=== PATIENT | female | born 1990 | race Caucasian/White ===

== ENCOUNTER 2018-01-26 13:33 | Emergency (ER) | payer MEDICAID ==
[~2018-01-26] VITALS: Ht 261.6 cm; Wt 70.3 kg
[~2018-01-26 13:33] MED LIST: ACET-2222 PO; ACHD5005 PO; ALLERGY MED; ALPR.25T PO; AMOX500C2 PO; AZIT-21 PO; BC PILL; BPR150TCR; CEPH-38 PO; DCS100C; DESV50TA; DOXY100C2 PO; ESCT10T; FLUO20CA25 PO; GEODON; GUAN3TAB; HYDR-1231 PO; HYDR1TAB PO; Hydrocodone Bit/Acetaminophen PO; IBP600T1 PO; Ibuprofen PO; METH4TAB PO; MGX400T PO; MNTL10T; NAPR-243 PO; NEOM10DR20 LEFT EAR; NIFE-12 PO; NIFE10CA21 PO; OMEP20CA6; PEG250PW; PNV1CAPS13 PO; PRD20T PO; PREN1TAB39 PO; PROP1TAB77 PO; RAME8T; SCR1T1; SULF1TAB38 PO; TRAZADONE; YAZ; ZPR80C; [UNRECOGNIZED DRUG - REMARK]
--- NOTE | 2018-01-26 13:54 | ED Chest Pain ---
General Chief Complaint: Chest Pain Stated Complaint: CP//LT EXTREMITIES NUMB Source: patient Exam Limitations: no limitations History of Present Illness Date Seen by Provider: Jan 26, 2018 Time Seen by Provider: 13:52 Initial Comments ER with reports of chest pain. The chest pain has been constant for about 24 hours. She states that she's worked about 48 hours in the past 4 days and thinks she might be overworked. 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 Abducting her left arm worsens the chest pain in the left anterior lateral chest is tender to palpation. She has had intermittent left-sided sharp chest pain for over a year and has been diagnosed with palpitations in the past. She states that she was also worked up for a possible tumor in her back and she was seen in neurosurgeon and had an MRI done. The neurosurgeon was concerned about her heart over a year ago because "my heart would stop during the scan". She does have some occasional left arm and left leg numbness associated with this chest pain. No injury. She does not see a rehabilitation supervisor. Timing/Duration: changing over time Severity/Quality: moderate, sharp Radiation: no radiation Activities at Onset: none Modifying Factors: worse with movement ASA po MANAGER OF EXHIBITIONS AND COLLECTIONS: No NTG SL MANAGER OF EXHIBITIONS AND COLLECTIONS: No Associated Symptoms: No abdominal pain, No back pain, No diaphoresis, No dizziness, No edema, No fatigue, No fever/chills, No headache, No heartburn, No nausea/vomiting, No rash, No shortness of breath, No swelling/lump in chest, No syncope, No weakness Allergies and Home Medications Allergies Coded Allergies: Oxycodone (Verified Allergy, Mild, WELTS, ITCHING, 09/22/09) Amoxicillin (Unverified Adverse Reaction, Mild, YEAST INFECTION, 09/22/09) Home Medications Alprazolam 0.25 Mg Tab, 0.25 MG PO Q8H PRN for ANXIETY Prescribed by: NARENDRA ZUNIGA on 04/29/14 173 Fluoxetine Hcl 20 Mg Capsule, 1 EACH PO DAILY Prescribed by: NARENDRA ZUNIGA on 04/29/14 173 Hydrocodone Bit/Acetaminophen 1 Tab Tablet, 1-2 TAB PO Q6H PRN for PAIN Prescribed by: FALLON GARCIA on 04/30/142206 Vits W-Ca,Fe,Fa(<1MG) 1 Each Tablet, 1 TAB PO DAILY, (Reported) [Hydrocodone Bit/Acetaminophen] 1 TAB TAB, 1 TAB PO Q4H PRN for PAIN Prescribed by: NARENDRA ZUNIGA on 04/29/141733 [Ibuprofen] 600 MG TAB, 600 MG PO Q6HR Prescribed by: NARENDRA ZUNIGA on 04/29/141733 Patient Home Medication List Home Medication List Reviewed: Yes Review of Systems Constitutional: see HPI EENTM: No Symptoms Reported Respiratory: See HPI; Denies Shortness of Air, Denies SOA With Exertion, Denies SOA at Rest Cardiovascular: See HPI, Chest Pain Gastrointestinal: No Symptoms Reported Genitourinary: No Symptoms Reported Musculoskeletal: no symptoms reported Skin: no symptoms reported Psychiatric/Neurological: No Symptoms Reported Hematologic/Lymphatic: No Symptoms Reported Past Qinzzxl-Nlidnv-Bvjmfg Hx Patient Social History Alcohol Use: Denies Use Recreational Drug Use: No Smoking Status: Current Everyday Smoker Type Used: Cigarettes Recent Foreign Travel: No Contact w/Someone Who Travel: No Recent Hopitalizations: No Physical Abuse: No Sexual Abuse: No Mistreated: No Fear: No Immunizations Up To Date Tetanus Booster (TDap): Less than 5yrs PED Vaccines UTD: No Date of Influenza Vaccine: Jun 23, 2011 Past Medical History Surgeries: Yes (right shoulderX3 , left knee, ) Adenoidectomy, 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, Tonsillectomy, Tubal Ligation Respiratory: Yes Asthma Cardiac: No Neurological: No 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 Disorders: No Female 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 Disorders: Denies Sexually Transmitted Disease: No HIV/AIDS: No Genitourinary: No Gastrointestinal: No Musculoskeletal: No Endocrine: No Cancer: No Psychosocial: Yes Anxiety, Depression Nursing Suicide Risk Score: 0 Integumentary: No Blood Disorders: No Adverse Reaction/Blood Tranf: No Family Medical History Asthma 19 MOTHER G8 BROTHER Drug abuse 19 FATHER (currently) 19 MOTHER, Onset:20's - 25 Psychosocial problem 19 MOTHER (bipolar/depression) Physical Exam Vital Signs Vital Signs - First Documented 01/26/18 13:46 Temp 97.8 Pulse 89 Resp 20 B/P (MAP) 103/73 (83) Pulse Ox 98 O2 Delivery Room Air Capillary Refill : Less Than 3 Seconds Height, Weight, BMI Height: 5'4" Weight: 120lbs. oz. 54.981420ch; BMI Method:Stated General Appearance: No Apparent Distress, WD/WN HEENT: PERRL/EOMI, TMs Normal Neck: Full Range of Motion, Normal Inspection Respiratory: Normal Breath Sounds, No Accessory Muscle Use, No Respiratory Distress Cardiovascular: Regular Rate, Rhythm, Normal Peripheral Pulses Gastrointestinal: Normal Bowel Sounds, Non Tender, Soft Extremity: Normal Capillary Refill, Normal Inspection Neurologic/Psychiatric: Alert, Oriented x3 Skin: Normal Color, Warm/Dry Progress/Results/Core Measures Results/Orders Lab Results Laboratory Tests Test 01/26/18 14:05 Range/Units White Blood Count 9.9 4.3-11.0 10^3/uL Red Blood Count 4.34 L 4.35-5.85 10^6/uL Hemoglobin 14.1 11.5-16.0 G/DL Hematocrit 41 35-52 % Mean Corpuscular Volume 95 80-99 FL Mean Corpuscular Hemoglobin 32 25-34 PG Mean Corpuscular Hemoglobin Concent 34 32-36 G/DL Red Cell Distribution Width 13.1 10.0-14.5 % Platelet Count 242 130-400 10^3/uL Mean Platelet Volume 10.2 7.4-10.4 FL Neutrophils (%) (Auto) 56 42-75 % Lymphocytes (%) (Auto) 38 12-44 % Monocytes (%) (Auto) 4 0-12 % Eosinophils (%) (Auto) 1 0-10 % Basophils (%) (Auto) 1 0-10 % Neutrophils # (Auto) 5.6 1.8-7.8 X 10^3 Lymphocytes # (Auto) 3.7 1.0-4.0 X 10^3 Monocytes # (Auto) 0.4 0.0-1.0 X 10^3 Eosinophils # (Auto) 0.1 0.0-0.3 10^3/uL Basophils # (Auto) 0.1 0.0-0.1 10^3/uL Sodium Level 141 135-145 MMOL/L Potassium Level 3.2 L 3.6-5.0 MMOL/L Chloride Level 106 98-107 MMOL/L Carbon Dioxide Level 25 21-32 MMOL/L Anion Gap 10 5-14 MMOL/L Blood Urea Nitrogen 10 7-18 MG/DL Creatinine 0.74 0.60-1.30 MG/DL Estimat Glomerular Filtration Rate > 60 BUN/Creatinine Ratio 14 Glucose Level 116 H 70-105 MG/DL Calcium Level 9.6 8.5-10.1 MG/DL Serum Test, Qualitative NEGATIVE NEGATIVE My Orders Orders - MAGDALENO VIVAR APRN Cbc With Automated Diff (01/26/18 13:51) Basic Metabolic Panel (01/26/18 13:51) Hcg,Qualitative Serum (01/26/18 13:51) Chest Pa/Lat (2 View) (01/26/18 13:51) Ekg Tracing (01/26/18 13:51) Iv Heplock-Insert (Order) (01/26/18 13:51) Ketorolac Injection (Toradol Injection) (01/26/18 14:00) Medications Given in ED Current Medications Medications Dose Ordered Sig/Chanel Route Start Time Stop Time Status Last Admin Dose Admin Ketorolac Tromethamine 15 mg ONCE ONCE IVP 01/26/18 14:00 01/26/18 14:01 DC 01/26/18 14:07 15 MG Vital Signs/I&O 01/26/18 01/26/18 13:46 13:46 Temp 97.8 Pulse 89 Resp 20 B/P (MAP) 103/73 (83) Pulse Ox 98 O2 Delivery Room Air Departure Impression Primary Impression: Chest pain Disposition: HOME, SELF-CARE Condition: Stable Departure-Patient Inst. Decision time for Depature: 14:36 Referrals: JOYCE TRENT DO (PCP) Primary Care Physician OSKAR HENDRIX (Family) Primary Care Physician Morelia NINA MD Patient Instructions: Chest Pain (DC) Add. Discharge Instructions: 1. I've made an appointment for you on February 13 [address] Nina. Return to ER for any concerns. Discharge instructions reviewed with patient and/or family. Voiced understanding. Work/School Note: Work Release Form Date Seen in the Emergency Department: Jan 28, 2018 Return to Work: Jan 26, 2018 MAGDALENO VIVAR APRN Jan 26, 2018 13:54
[2018-01-26] MEDS ORDERED: KETOROLAC 30 MG/ML VIAL IVP ONE (14:00)
[2018-01-26 14:14] LABS: BASOPHILS # (AUTO) 0.1 10^3/uL (0.0-0.1); BASOPHILS % (AUTO) 1 % (0-10); EOSINOPHILS # (AUTO) 0.1 10^3/uL (0.0-0.3); EOSINOPHILS % (AUTO) 1 % (0-10); HEMATOCRIT 41 % (35-52); HEMOGLOBIN 14.1 G/DL (11.5-16.0); LYMPHOCYTES # (AUTO) 3.7 X 10^3 (1.0-4.0); LYMPHOCYTES % (AUTO) 38 % (12-44); MEAN CORPUSCULAR HGB CONC 34 G/DL (32-36); MEAN CORPUSCULAR VOLUME 95 FL (80-99); MEAN PLATELET VOLUME 10.2 FL (7.4-10.4); MONOCYTES # (AUTO) 0.4 X 10^3 (0.0-1.0); MONOCYTES % (AUTO) 4 % (0-12); NEUTROPHILS # (AUTO) 5.6 X 10^3 (1.8-7.8); NEUTROPHILS % (AUTO) 56 % (42-75); PLATELET COUNT 242 10^3/uL (130-400); RED BLOOD COUNT 4.34 10^6/uL (4.35-5.85); RED CELL DISTRIBUTION WIDTH 13.1 % (10.0-14.5); WHITE BLOOD COUNT 9.9 10^3/uL (4.3-11.0)
[2018-01-26 14:16] LABS: MEAN CORPUSCULAR HEMOGLOBIN 32 PG (25-34)
[2018-01-26 14:35] LABS: BUN/CREATININE RATIO 14; CALCIUM 9.6 MG/DL (8.5-10.1); CARBON DIOXIDE 25 MMOL/L (21-32); CHLORIDE 106 MMOL/L (98-107); CREATININE SERUM 0.74 MG/DL (0.60-1.30); GFR ESTIMATED > 60; GLUCOSE 116 MG/DL (70-105); POTASSIUM 3.2 MMOL/L (3.6-5.0); SODIUM 141 MMOL/L (135-145)
--- NOTE | 2018-01-26 15:10 | Diagnostic Imaging Report ---
INDICATION: Left-sided chest pain x1 day.. TECHNIQUE: Two view chest 3:10 PM CORRELATION STUDY: 09/14/2010 FINDINGS: The heart size, mediastinal configuration and pulmonary vasculature are within normal limits. The lungs are clear with no consolidating infiltrate. There is no significant pleural effusion or pneumothorax. 3 anchor screws over the right shoulder. IMPRESSION: 1. No radiographic evidence for acute abnormality of the chest. Dictated by: Dictated on workstation # [id number]
[2018-01-26 15:40] VITALS: BP 98/68
--- OUTSIDE RECORDS SUMMARY | 2018-01-26 22:07 | XMS REPORT ---
Author Author AYDEN DICKINSON Organization [facility] Address [address] [place] [address] Care Team Providers Care Cognos Developer Name Role Phone ALOK AYDEN Unavailable PROBLEMS Type Condition ICD9-CM Code [id number] Code Onset Dates Condition Status SNOMED Code Problem Kidney stones N20.0 Active 40002919 Problem Enlargement of lymph nodes 785.6 Active 09927953 ALLERGIES Substance Reaction Event Type Date Status Amoxicillin Unknown Drug Allergy Sep, Active Oxycodone Unknown Drug Allergy Sep, Active ENCOUNTERS Encounter Location Date Diagnosis [facility] [id number] [place] [phone] Sep, Sore throat J02.9 ; Viral URI J06.9 and Viral gastroenteritis A08.4 [facility] [id number] [place] [phone] Aug, Oral abscess K12.2 [facility] [id number] [place] [address]27[address] Mar, [facility] [id number] [place] [phone] [phone] Mar, Oral thrush B37.0 [facility] [id number] [place] [phone] Feb, Acute bacterial bronchitis J20.9 [facility] [id number] [place] [address] [phone] -2088 Feb, Upper respiratory tract infection, unspecified type J06.9 [facility] [id number] [place] [address]96[address] 6[address] Jan, Tension headache G44.209 [facility] [id number] [address] Sep, [facility] [id number] [place] [phone] [address][phone] Sep, Thrush B37.0 [facility] [id number] [place] [address] 18706- 1469 Sep, Kidney stones N20.0 [facility] [id number] [place] [address] 54406[address] 9628 Sep, Kidney stones N20.0 [facility] [id number] [place] [address]80[address] Aug, [facility] [id number] [place] [address]17[address] Aug, Painful urination R30.9 and Hematuria R31.9 [facility] [id number] [place] [phone] Nov, Dental examination V72.2 [facility] [id number] [place] [address] 65864- 0781 14 Sep, 2014 [facility] [id number] [place] [phone] 0927 Sep, [facility] [address] [address] Feb, [facility] [id number] [place] [address] 84135[address] Feb, [facility] [id number] [place] [address] 78267- 4[address] Mar, [facility] [id number] [place] [address] Mar, [facility] [address] [address] Mar, [facility] [id number] [place] [address]38[address] 5[address] Mar, [facility] [address] [facility] [id number] [address] Feb, [facility] [address] [facility] [id number] [address] Feb, [facility] [address] [facility] [id number] [address] Jul, IMMUNIZATIONS No Known Immunizations SOCIAL HISTORY Never Assessed REASON FOR VISIT upper respiratory infection/vomiting/sore throat Pt c/o upper respiratory infection states she has had sinus pain/pressure and fever for 4-5 days, fever has subsided, she has also had vomiting and some diarrhea for the last 2 days BELLA Ruvalcaba PLAN OF CARE Activity Details Follow Up prn Reason: VITAL SIGNS Height 63 in 2017-10-16 Weight 151.2 lbs 2017-10-16 Temperature 98.0 degrees Fahrenheit 2017-10-16 Heart Rate 88 bpm 2017-10-16 Respiratory Rate 18 2017-10-16 BMI 26.78 kg/m2 2017-10-16 Blood pressure systolic 108 mmHg 2017-10-16 Blood pressure diastolic 52 mmHg 2017-10-16 MEDICATIONS Medication Instructions Dosage Frequency Start Date End Date Duration Status Seroquel Active HydrOXYzine HCl 10 MG Active Celexa Active Baclofen 20 MG Orally every 8 hrs 1 tablet with food or milk 8h Not-Taking Zoloft 50 mg take 1 tablet (50 mg) by oral route once daily Feb, Not-Taking ProAir HFA 108 (90 Base) MCG/ACT Inhalation every 4 hrs 2 puffs as needed 4h Feb, 30 days Not-Taking Hydrocodone-Acetaminophen 5-325 MG Orally every 6 hrs 1 tablet as needed 6h Sep, Not-Taking Gabapentin 100 MG Not-Taking RESULTS Name Result Date Reference Range STREP A (IN HOUSE) 2017-10-16 STREP A negative Control + Lot # [id number] Exp date 2020-04-03 PROCEDURES Procedure Date Ordered Result Body Site STREP A ASSAY W/OPTIC October 16, 2017 INSTRUCTIONS MEDICATIONS ADMINISTERED No Known Medications MEDICAL (GENERAL) HISTORY Type Description Date Surgical History Tubal Ligation Surgical History T & A Surgical History Right shoulder x3 Surgical History Left knee Surgical History TVH with BSO Surgical History hysterectomy Hospitalization History Surgery/childbirth
--- OUTSIDE RECORDS SUMMARY | 2018-01-26 22:07 | XMS REPORT ---
Author Author AYDEN DICKINSON Organization [facility] Address [address] [place] [address] Care Team Providers Care Meat Grinder Name Role Phone ALOK AYDEN Unavailable PROBLEMS Type Condition ICD9-CM Code [id number] Code Onset Dates Condition Status SNOMED Code Problem Kidney stones N20.0 Active 02918226 Problem Enlargement of lymph nodes 785.6 Active 32685781 ALLERGIES Substance Reaction Event Type Date Status Amoxicillin Unknown Drug Allergy Aug, Active Oxycodone Unknown Drug Allergy Aug, Active ENCOUNTERS Encounter Location Date Diagnosis [facility] [id number] [place] [address] Sep, Sore throat J02.9 ; Viral URI J06.9 and Viral gastroenteritis A08.4 [facility] [id number] [place] [address]83 [address]808 Aug, Oral abscess K12.2 [facility] [place] [id number] [place] [address] Mar, [facility] [id number] [place] [address] 98069 [address][phone] Mar, Oral thrush B37.0 [facility] [id number] [place] [address]37 [address] Feb, Acute bacterial bronchitis J20.9 [facility] [id number] [place] [address]350 [address] Feb, Upper respiratory tract infection, unspecified type J06.9 [facility] [place] [id number] [place] [address]97[address] Jan, Tension headache G44.209 [facility] [place] [id number] [address] Sep, [facility] [id number] [place] [address] Sep, Thrush B37.0 [facility] [place] [id number] [place] [address] 30340- 8086 Sep, Kidney stones N20.0 [facility] [place] [id number] [place] [address] 02676- 5115 Sep, Kidney stones N20.0 [facility] [place] [id number] [place] [address] 87617- 3947 Aug, [facility] [place] [id number] [place] [address] 12298- 8[address] Aug, Painful urination R30.9 and Hematuria R31.9 [facility] [id number] [place] [id number] Nov, Dental examination V72.2 [facility] [place] [id number] [place] [address] 57300- 0[address] 14 Sep, 2014 [facility] [place] [id number] [place] [address]57[address]1 Sep, [facility] [place] [address] [address] Feb, [facility] [place] [id number] [place] [address] 82538- 5[address] Feb, [facility] [place] [id number] [place] [address] 15715- 4031 Mar, [facility] [place] [id number] [place] [address] 14410- 2873 Mar, [facility] [place] [address] [address] Mar, [facility] [place] [id number] [place] [address] 81284- [phone] Mar, [facility] [place] [address] [facility] [id number] [address] Feb, [facility] [place] [address] [facility] [id number], [place] [address] Feb, [facility] [place] [address] [facility] [id number], [place] [address] Jul, IMMUNIZATIONS No Known Immunizations SOCIAL HISTORY Never Assessed REASON FOR VISIT Lower wisdom teeth causing bilateral jaw pain - pain predominates on right side. Pt rates pain at 10. Last took 600mg Ibuprofen 14:30 today. Last took Excedrin migraine at 16:30 today. lisbeth PLAN OF CARE Activity Details Follow Up prn Reason: VITAL SIGNS Height 63 in 2017-08-22 Weight 157.4 lbs 2017-08-22 Temperature 97.9 degrees Fahrenheit 2017-08-22 Heart Rate 90 bpm 2017-08-22 Respiratory Rate 18 2017-08-22 BMI 27.88 kg/m2 2017-08-22 Blood pressure systolic 120 mmHg 2017-08-22 Blood pressure diastolic 80 mmHg 2017-08-22 MEDICATIONS Medication Instructions Dosage Frequency Start Date End Date Duration Status Gabapentin 100 MG Not-Taking Baclofen 20 MG Orally every 8 hrs 1 tablet with food or milk 8h Not-Taking Clindamycin HCl 300 MG Orally every 8 hrs 1 capsule 8h Aug,Aug 7 days Active Hydrocodone-Acetaminophen 5-325 MG Orally every 6 hrs 1 tablet as needed 6h Sep, Not-Taking Naproxen 500 MG Orally every 12 hrs 1 tablet with food or milk as needed 12h Aug, Aug, 7 days Active Zoloft 50 mg take 1 tablet (50 mg) by oral route once daily Feb, Not-Taking ProAir HFA 108 (90 Base) MCG/ACT Inhalation every 4 hrs 2 puffs as needed 4h Feb, 30 days Not-Taking Seroquel Active Celexa Active RESULTS No Results PROCEDURES No Known procedures INSTRUCTIONS MEDICATIONS ADMINISTERED No Known Medications MEDICAL (GENERAL) HISTORY Type Description Date Surgical History Tubal Ligation Surgical History T & A Surgical History Right shoulder x3 Surgical History Left knee Surgical History TVH with BSO Surgical History hysterectomy Hospitalization History Surgery/childbirth
--- OUTSIDE RECORDS SUMMARY | 2018-01-26 22:07 | XMS REPORT ---
Author JW Chowdary Organization [employer] Address Unknown Phone Unavailable Care Team Providers Care Quiller Machine Fixer Name Role Phone JW BOWERS CP Unavailable Allergies, Adverse Reactions, Alerts Substance Reaction Event Type Amoxicillin Info Not Available Drug Allergy Oxycodone Info Not Available Drug Allergy Problems Problem Type Condition Code Onset Dates Condition Status Problem Enlargement of lymph nodes 785.6 Active Assessment Tension headache G44.209 Active Problem Kidney stones N20.0 Active Medications No Known Medications Procedures Procedure Coding System Code Date THER/PROPH/DIAG INJ, SC/IM CPT-4 29228 Jan 23, 2016 Office Visit, Est Pt., Level 4 CPT-4 79223 Jan 23, 2016 TORADOL (IM) 60 MG/2ML (UP TO 15 MG) CPT-4 J1885 Jan 23, 2016 Vital Signs Date/Time: Jan 23, 2016 Cardiac Monitoring Heart Rate 76 bpm Weight 161.0 lbs Height 63 in BMI 28.52 Index Blood Pressure Diastolic 67 mmHg Blood Pressure Systolic 100 mmHg Results No Known Results Summary Purpose [employer] Submission
--- OUTSIDE RECORDS SUMMARY | 2018-01-26 22:07 | XMS REPORT ---
Author Author SUMANTH Parada Organization [facility] Address [address] [place] [address] Care Team Providers Care Securities Attorney Name Role Phone dagobertoEdytaSAW SUMANTH Unavailable PROBLEMS Type Condition ICD9-CM Code SSY70-UJ Code Onset Dates Condition Status SNOMED Code Problem Kidney stones N20.0 Active 46229284 Problem Enlargement of lymph nodes 785.6 Active 70097838 ALLERGIES No Information ENCOUNTERS Encounter Location Date Diagnosis [facility] [address] [address] Sep, Sore throat J02.9 ; Viral URI J06.9 and Viral gastroenteritis A08.4 [facility] [address] [address] Aug, Oral abscess K12.2 [facility] [address] [address] Mar, [facility] [address] [address] Mar, Oral thrush B37.0 [facility] [address] [address] Feb, Acute bacterial bronchitis J20.9 [facility] [address] [address] Feb, Upper respiratory tract infection, unspecified type J06.9 [facility] [address] [address] Jan, Tension headache G44.209 [place] [address] [address] Sep, [facility] [address] [address] Sep, Thrush B37.0 [facility] [id number] [place] [address] Sep, Kidney stones N20.0 [facility] [id number] [place] [address] Sep, Kidney stones N20.0 [facility] [id number] [place] [address] Aug, [facility] [id number] [place] [address] Aug, Painful urination R30.9 and Hematuria R31.9 [facility] [id number] [place] [id number] Nov, Dental examination V72.2 [facility] [id number] [place] [address]- [address] Sep, [facility] [id number] [place] [address]- 8[address] Sep, [facility] [id number] [place] [address]87- 5[address] Feb, [facility] [id number] [place] [address] 85857- 6449 Feb, [facility] [id number] [place] [address] 6[address]18- 3[address] Mar, [facility] [id number] [place] [address] 70358[address] 5[address] Mar, [facility] [id number] [place] [address] 236[address]- 4[address] Mar, [facility] [id number] [place] [address] 51568- 8057 Mar, [facility] [address] [place] [address] Feb, [facility] [address] [facility] [id number] [place] [address] Feb, [facility] [address] [facility] [id number] [place] [address] Jul, IMMUNIZATIONS No Known Immunizations SOCIAL HISTORY Never Assessed REASON FOR VISIT Fill perscription PLAN OF CARE VITAL SIGNS MEDICATIONS No Known Medications RESULTS No Results PROCEDURES No Known procedures INSTRUCTIONS MEDICATIONS ADMINISTERED No Known Medications MEDICAL (GENERAL) HISTORY Type Description Date Surgical History Tubal Ligation Surgical History T & A Surgical History Right shoulder x3 Surgical History Left knee Surgical History TVH with BSO Surgical History hysterectomy Hospitalization History Surgery/childbirth
--- OUTSIDE RECORDS SUMMARY | 2018-01-26 22:07 | XMS REPORT ---
Author Author SUMANTH Parada [facility] Address [address] [place] [address] Care Team Providers Care Office Machines Wirer Name Role Phone dagobertoEdytaSAW SUMANTH Unavailable PROBLEMS Type Condition ICD9-CM Code SHM32-IW Code Onset Dates Condition Status SNOMED Code Problem Kidney stones N20.0 Active 18429834 Problem Enlargement of lymph nodes 785.6 Active 11057869 ALLERGIES Substance Reaction Event Type Date Status Amoxicillin Unknown Drug Allergy Mar, Active Oxycodone Unknown Drug Allergy Mar, Active ENCOUNTERS Encounter Location Date Diagnosis [facility] [address] Sep, Sore throat J02.9 ; Viral URI J06.9 and Viral gastroenteritis A08.4 [facility] [id number] [place] [address] Aug, Oral abscess K12.2 [facility] [id number] [place] [address] Mar, [facility] [address] [place] [id number] [place] [address] Mar, Oral thrush B37.0 [facility] [id number] [place] [address] Feb, Acute bacterial bronchitis J20.9 [facility] [address] [address] Feb, Upper respiratory tract infection, unspecified type J06.9 [facility] [id number] [place] [address] Jan, Tension headache G44.209 [place] [address], [place] [address] Sep, [facility] [id number] [place] [address] Sep, Thrush B37.0 [facility] [id number] [place] [address] Sep, Kidney stones N20.0 [facility] [address] [id number] [place] [address] Sep, Kidney stones N20.0 [facility] [id number] [place] [address] Aug, [facility] [id number] [place] [address]15[address] Aug, Painful urination R30.9 and Hematuria R31.9 [facility] [id number] [place] [id number] Nov, Dental examination V72.2 [facility] [id number] [place] [address] Sep, [facility] [id number] [place] [address] Sep, [facility] [id number] [place] [address] 14[address] Feb, [facility] [id number] [place] [address]85- 6[address] Feb, [facility] [id number] [place] [address] 83316- 3[address] Mar, [facility] [id number] [place] [address]- 6[address] Mar, [facility] [id number] [place] [address] 28[address] Mar, [facility] [id number] [place] [address] 64[address] Mar, [facility] [address] [facility] [id number] [address] Feb, [facility] [address] [facility] [id number], [place] [address] Feb, [facility] [address] [facility] [id number], [place] [address] Jul, IMMUNIZATIONS No Known Immunizations SOCIAL HISTORY Never Assessed REASON FOR VISIT tongue has been swollen for the past 2 weeks. everythign tastes bad. reports she has sores in her mouth that are painful. [email or web address] PLAN OF CARE Activity Details Follow Up prn Reason: VITAL SIGNS Height 63 in 2017-04-01 Weight 160.8 lbs 2017-04-01 Temperature 98.2 degrees Fahrenheit 2017-04-01 Heart Rate 88 bpm 2017-04-01 Respiratory Rate 20 2017-04-01 BMI 28.48 kg/m2 2017-04-01 Blood pressure systolic 118 mmHg 2017-04-01 Blood pressure diastolic 68 mmHg 2017-04-01 MEDICATIONS Medication Instructions Dosage Frequency Start Date End Date Duration Status Nystatin 148642 UNIT/ML Mouth/Throat Four times a day 4 ml 6h Mar, May, 30 day(s) Active Gabapentin 100 MG Active Baclofen 20 MG Orally every 8 hrs 1 tablet with food or milk 8h Active ProAir HFA 108 (90 Base) MCG/ACT Inhalation every 4 hrs 2 puffs as needed 4h Feb, 30 days Active RESULTS No Results PROCEDURES No Known procedures INSTRUCTIONS MEDICATIONS ADMINISTERED No Known Medications MEDICAL (GENERAL) HISTORY Type Description Date Surgical History Tubal Ligation Surgical History T & A Surgical History Right shoulder x3 Surgical History Left knee Surgical History TVH with BSO Surgical History hysterectomy Hospitalization History Surgery/childbirth
--- OUTSIDE RECORDS SUMMARY | 2018-01-26 22:07 | XMS REPORT ---
Author Author VALENTINA GRANADOS [facility] Address [address] [place] [address] Care Team Providers Care Van Helper Name Role Phone VALENTINA GRANADOS Unavailable PROBLEMS Type Condition ICD9-CM Code SEI35-XL Code Onset Dates Condition Status SNOMED Code Problem Kidney stones N20.0 Active 20406805 Problem Enlargement of lymph nodes 785.6 Active 55945872 Assessment Upper respiratory tract infection, unspecified type J06.9 Feb, Active 47461399 ALLERGIES Substance Reaction Event Type Date Status Amoxicillin Unknown Drug Allergy Feb, Active Oxycodone Unknown Drug Allergy Feb, Active SOCIAL HISTORY No smoking Hx information available PLAN OF CARE VITAL SIGNS Height 63 in 2016-03-13 Weight 161.4 lbs 2016-03-13 Heart Rate 96 bpm 2016-03-13 Respiratory Rate 20 2016-03-13 BMI 28.59 kg/m2 2016-03-13 Blood pressure systolic 110 mmHg 2016-03-13 Blood pressure diastolic 80 mmHg 2016-03-13 MEDICATIONS No Known Medications RESULTS No Results PROCEDURES Procedure Date Ordered Related Diagnosis Body Site Office Visit, Est Pt., Level 3 Mar 13, 2016 IMMUNIZATIONS No Known Immunizations
--- OUTSIDE RECORDS SUMMARY | 2018-01-26 22:07 | XMS REPORT ---
Author Author OSKAR HENDRIX Organization [employer] Address Unknown Phone Unavailable Care Team Providers Care Extrusion Die Corrector Name Role Phone OSKAR HENDRIX CP Unavailable Allergies No Known Allergies Problems Problem Type Condition Code Onset Dates Condition Status Problem Enlargement of lymph nodes 785.6 Active Problem Kidney stones N20.0 Active Medications No Known Medications Results No Known Results Summary Purpose [employer] Submission
--- OUTSIDE RECORDS SUMMARY | 2018-01-26 22:08 | XMS REPORT ---
Author Author SUMANTH Parada [facility] Address [address] [place] [address] Care Team Providers Care Clarifying Plant Operator Name Role Phone brendonBERNASUMANTH SPRING Unavailable PROBLEMS Type Condition ICD9-CM Code DTV42-SS Code Onset Dates Condition Status SNOMED Code Problem Kidney stones N20.0 Active 65407807 Problem Enlargement of lymph nodes 785.6 Active 11072908 ALLERGIES Substance Reaction Event Type Date Status Amoxicillin Unknown Drug Allergy Feb, Active Oxycodone Unknown Drug Allergy Feb, Active ENCOUNTERS Encounter Location Date Diagnosis [facility] [id number] [place] [address] Aug, Oral abscess K12.2 [facility] [id number] [place] [address] Mar, [facility] [address] [address] Mar, Oral thrush B37.0 [facility] [id number] [place] [address] Feb, Acute bacterial bronchitis J20.9 [facility] [address] [id number] [place] [address] Feb, Upper respiratory tract infection, unspecified type J06.9 [facility] [id number] [place] [address] Jan, Tension headache G44.209 [facility] [id number] [place] [address] Sep, [facility] [address] [address] Sep, Thrush B37.0 [facility] [address] [place] [address]82- [address] Sep, Kidney stones N20.0 [facility] [id number] [place] [address]38- [address] Sep, Kidney stones N20.0 [facility] [id number] [place] [address] 33933- 5[address] Aug, [facility] [id number] [place] [address] Aug, Painful urination R30.9 and Hematuria R31.9 [facility] [id number] [place] [id number] Nov, Dental examination V72.2 [facility] [id number] [place] [address]- [address] 14 Sep, 2014 [facility] [id number] [place] [address] 79866- [address]368 Sep, [facility] [id number] [place] [address] 38498- 9[address] Feb, [facility] [id number] [place] [address] 08888- 1649 Feb, [facility] [address] [place] [address] 02534- 9612 Mar, [facility] [id number] [place] [address] 38293- 65[address] Mar, [facility] [id number] [place] [address] 25078- 5713 Mar, [facility] [id number] [place] [address] 77846- 0308 Mar, [facility] [address] [place] [address] 81115- 8[address] 24 Feb, 2013 [facility] [address] [place] [address] [place] [address] Feb, [facility] [address] [facility] [id number] [place] [address] Jul, IMMUNIZATIONS No Known Immunizations SOCIAL HISTORY Never Assessed REASON FOR VISIT head and chest congestion, cough for 10 days. pt started vomiting 2 days ago. [email or web address] PLAN OF CARE Activity Details Follow Up prn Reason: VITAL SIGNS Height 63 in 2017-02-27 Weight 160.0 lbs 2017-02-27 Temperature 98.0 degrees Fahrenheit 2017-02-27 Heart Rate 94 bpm 2017-02-27 Respiratory Rate 20 2017-02-27 BMI 28.34 kg/m2 2017-02-27 Blood pressure systolic 116 mmHg 2017-02-27 Blood pressure diastolic 78 mmHg 2017-02-27 MEDICATIONS Medication Instructions Dosage Frequency Start Date End Date Duration Status Azithromycin 250 MG Orally Once a day 2 tablets on the first day, then 1 tablet daily for 4 days 24h Feb, Feb, 5 day(s) Active Baclofen 20 MG Orally every 8 hrs 1 tablet with food or milk 8h Active Gabapentin 100 MG Active PredniSONE 20 MG Orally Once a day 2 tablet 24h Feb, Feb, 5 days Active ProAir HFA 108 (90 Base) MCG/ACT [...]
--- OUTSIDE RECORDS SUMMARY | 2018-01-26 22:12 | XMS REPORT | Continuity of Care Document ---
Author Author [facility] Address Unknown Phone Unavailable Allergies Active Description Code Type Severity Reaction Onset Reported/Identified Relationship to Patient Clinical Status Yes AMOXICILLIN UNKNOWN UNKNOWN Yes OXYCODONE UNKNOWN UNKNOWN Yes amoxicillin Drug Allergy N/A N/A 08/08/2009 Yes amoxicillin [id number] Drug Allergy Mild YEAST INFECTION 09/22/2009 Yes oxycodone [id number] Drug Allergy Mild WELTS, ITCHING 09/22/2009 Yes Oxycodone Drug Allergy N/A N/A 03/15/2013 Medications Medication Packaging Start Date Stop Date Route Dosage Sig IBUPROFEN TAB 600 MG (MOTRIN) MG 06/08/2017 ONCE&1920 Problems Date Dx Coded Attending Type Code Diagnosis Diagnosed By 08/08/2009 JOYCE TRENT DO 460 ACUTE NASOPHARYNGITIS [COMMON COLD] 08/08/2009 JOYCE TRENT DO 460 ACUTE NASOPHARYNGITIS [COMMON COLD] 08/08/2009 JOYCE TRENT DO 460 ACUTE NASOPHARYNGITIS [COMMON COLD] 08/08/2009 ANITRA ISAAC DDS 460 ACUTE NASOPHARYNGITIS [COMMON COLD] 05/01/2010 Ot 789.03 08/26/2010 Ot 380.10 08/26/2010 Ot 382.9 08/26/2010 Ot 388.70 09/14/2010 Ot 784.0 09/14/2010 Ot 786.50 09/14/2010 Ot 789.00 09/14/2010 Ot 794.31 11/04/2010 Ot 729.5 11/04/2010 Ot 786.50 01/25/2011 Ot 646.83 01/25/2011 Ot 789.03 04/03/2011 Ot 646.83 04/03/2011 Ot 789.00 04/17/2011 Ot 644.03 05/06/2011 Ot 644.03 05/08/2011 Ot 644.03 05/19/2011 Ot 644.03 05/28/2011 Ot 644.03 2011 Ot 644.03 06/20/2011 Ot 644.03 06/25/2011 Ot 644.13 06/28/2011 Ot 644.13 06/30/2011 Ot 644.03 07/05/2011 Ot 493.90 07/05/2011 Ot 564.1 07/05/2011 Ot 648.91 07/05/2011 Ot V02.51 07/05/2011 Ot V06.1 07/05/2011 Ot V27.0 07/25/2012 Ot 646.83 07/25/2012 Ot 789.00 08/31/2012 Ot 644.03 10/23/2012 ZUNIGA DO, NARENDRA C Ot 595.9 10/23/2012 ZUNIGA DO, NARENDRA C Ot 646.63 10/24/2012 ZUNIGA DO, NARENDRA C Ot 590.80 10/24/2012 ZUNIGA DO, NARENDRA C Ot 646.63 10/26/2012 ZUNIGA DO, NARENDRA C Ot 592.0 10/26/2012 ZUNIGA DO, NARENDRA C Ot 599.0 10/26/2012 ZUNIGA DO, NARENDRA C Ot 646.63 10/26/2012 ZUNIGA DO, NARENDRA C Ot 648.93 10/26/2012 ZUNIGA DO, NARENDRA C Ot 649.03 11/21/2012 ZUNIGA DO, NARENDRA C Ot 644.03 11/24/2012 ZUNIGA DO, NARENDRA C Ot 644.03 03/15/2013 TRENT DO, JOYCE K 785.6 LYMPHADENOPATHY 03/15/2013 TRENT DO, JOYCE K 785.6 LYMPHADENOPATHY 03/15/2013 TRENT DO, JOYCE K 785.6 LYMPHADENOPATHY 03/15/2013 PONCHO PALOMOS, ANITRA [place] 785.6 LYMPHADENOPATHY 03/26/2014 CLEVELAND LOREDO MD Ot 640.03 03/26/2014 CLEVELAND LOREDO MD Ot 649.03 03/26/2014 CLEVELAND LOREDO MD Ot 649.53 03/26/2014 GERTRUDE SAUCEDA, CLEVELAND Vergara Ot 651.03 03/26/2014 CLEVELAND LOREDO MD Ot V91.00 04/29/2014 ZUNIGA DONARENDRA Ot 300.00 04/29/2014 NARENDRA ZUNIGA DO Ot 311 04/29/2014 ZUNIGA DONARENDRA C Ot 648.41 04/29/2014 ZUNIGA NARENDRA SIMMS C Ot 649.01 04/29/2014 ZUNIGA DONARENDRA C Ot 651.01 04/29/2014 ZUNIGA NARENDRA SIMMS Ot 656.41 04/29/2014 ZUNIGA NARENDRA SIMMS Ot V27.4 04/29/2014 ZUNIGA NARENDRA SIMMS Ot V91.01 04/30/2014 FALLON GARCIA DO Ot 300.00 04/30/2014 FALLON GARCIA DO Ot 634.92 10/03/2015 JOSE SAUCEDA, ABIMAEL Vergara Ot N20.9 10/04/2015 OSKAR HENDRIX Ot R30.9 10/18/2015 JOSE SAUCEDA, ABIMAEL Vergara Ot N20.9 URINARY CALCULUS, UNSPECIFIED 06/08/2017 DORIS GARCIA 923.20 CONTUSION OF HAND(S) 06/08/2017 DORIS GARCIA S60.221A CONTUSION OF RIGHT HAND, INITIAL ENCOUNTER Procedures Code Description [place] [address] ROUTINE VENIPUNCTURE 03/15/2013 61535 CBC W/MANUAL DIF (order) 03/15/2013 96110 ROUTINE VENIPUNCTURE 03/16/2013 69974 PERIPHERIAL BLOOD SMEAR 03/18/2013 27702 MONO TEST (IN-HOUSE) 04/01/2013 Results There is no data. Encounters ACCT No. Visit Date/Time Discharge Status Pt. Type Provider Facility Loc./Unit Complaint [id number] 09/22/2013 08:09:00 09/22/2013 23:59:59 CLS Outpatient ANITRA ISAAC DDS [id number] 04/01/2013 16:33:00 04/01/2013 23:59:59 CLS Outpatient JOYCE TRENT DO [id number] 03/16/2013 17:03:00 03/16/2013 23:59:59 CLS Outpatient JOYCE TRENT DO [id number] 03/15/2013 15:10:00 03/15/2013 23:59:59 CLS Outpatient JOYCE TRENT DO [id number] 10/02/2015 08:19:00 10/02/2015 23:59:59 CLS Outpatient ABIMAEL GARCIA MD [facility] [id number] 09/18/2015 10:04:00 09/18/2015 23:59:59 CLS Outpatient OSKAR HENDRIX [facility] [id number] 04/30/2014 19:00:00 04/30/2014 22:33:00 DIS Emergency JOSE FALLON SIMMS [facility] ER [id number] 04/28/2014 13:46:00 04/29/2014 19:40:00 DIS Inpatient NARENDRA ZUNIGA DO [facility] [id number] 03/25/2014 23:59:00 03/26/2014 01:50:00 DIS Emergency CLEVELAND LOREDO MD [facility] ER [id number] 11/27/2012 17:54:00 11/29/2012 17:15:00 DIS Inpatient [id number] 11/25/2012 01:19:00 11/25/2012 03:35:00 DIS Outpatient [id number] 11/24/2012 14:18:00 11/24/2012 16:20:00 DIS Outpatient NARENDRA ZUNIGA DO [facility] [id number] 11/21/2012 18:06:00 11/21/2012 20:09:00 DIS Outpatient NARENDRA ZUNIGA DO [facility] [id number] 10/25/2012 08:45:00 10/26/2012 10:01:00 DIS Inpatient NARENDRA ZUNIGA DO [facility] [id number] 10/24/2012 06:12:00 10/24/2012 08:30:00 DIS Outpatient NARENDRA ZUNIGA DO [facility] [id number] 10/23/2012 14:24:00 10/23/2012 15:35:00 DIS Outpatient NARENDRA ZUNIGA DO [facility] [id number] 08/30/2015 09:45:00 Document Registration [id number] 08/31/2012 20:32:00 Document Registration [id number] 07/25/2012 23:04:00 Document Registration [id number] 07/03/2011 14:50:00 Document Registration [id number] 06/30/2011 14:31:00 Document Registration [id number] 06/28/2011 18:02:00 Document Registration [id number] 06/25/2011 21:47:00 Document Registration [id number] 06/19/2011 20:29:00 Document Registration [id number] 2011 13:11:00 Document Registration [id number] 05/28/2011 16:15:00 Document Registration [id number] 05/19/2011 00:23:00 Document Registration [id number] 05/08/2011 16:05:00 Document Registration [id number] 05/06/2011 21:06:00 Document Registration [id number] 04/17/2011 14:40:00 Document Registration [id number] 04/03/2011 21:07:00 Document Registration [id number] 01/25/2011 13:03:00 Document Registration [id number] 11/04/2010 17:21:00 Document Registration [id number] 09/13/2010 23:34:00 Document Registration [id number] 08/26/2010 09:21:00 Document Registration [id number] 05/01/2010 16:17:00 Document Registration [id number] 10/16/2017 16:35:00 10/16/2017 23:59:59 CLS Outpatient ANGELIQUE JULIEN LAC [facility] [id number] 06/08/2017 18:21:00 06/08/2017 19:33:00 DIS Outpatient VINITAFIORDORIS LIZARRAGA [id number] 06/08/2017 19:21:07 Document Registration
== END 2018-01-26 15:40 | disposition home or self-care (01) ==
LOC: EDUNIT# 13:33 → ER 13:36
DX: R07.9 Chest pain, unspecified (principal); J45.909 Unspecified asthma, uncomplicated; F41.9 Anxiety disorder, unspecified; F32.9 Major depressive disorder, single episode, unspecified; F17.210 Nicotine dependence, cigarettes, uncomplicated; Z90.89 Acquired absence of other organs; Z98.51 Tubal ligation status; Z88.0 Allergy status to penicillin; Z88.8 Allergy status to other drugs, medicaments and biological substances
CPT/HCPCS: 36415; 71046; 80048; 84703; 85025; 93005; 96374

== ENCOUNTER → 2018-02-25 | Outpatient (CLI) | payer MEDICAID | LOC: CARD 08:15 | PROVIDERS: ATTEND Internal Medicine Interventional Cardiology | DX: R00.2 Palpitations (principal) | CPT/HCPCS: 93225; 93226 ==

== ENCOUNTER 2018-03-17 12:00 | Outpatient (RCR) | payer MEDICAID | END 2018-03-22 | disposition home or self-care (01) | LOC: CARD 12:00 | PROVIDERS: ATTEND Internal Medicine Interventional Cardiology | DX: R07.9 Chest pain, unspecified (principal); R00.2 Palpitations; Z72.0 Tobacco use | CPT/HCPCS: 93270; 93306 ==

== ENCOUNTER 2018-04-06 12:00 | Outpatient (RCR) | payer MEDICAID | END 2018-06-21 | disposition home or self-care (01) | LOC: CARD 12:00 | PROVIDERS: ATTEND Internal Medicine Interventional Cardiology | DX: R07.9 Chest pain, unspecified (principal); R00.2 Palpitations; Z72.0 Tobacco use ==

== ENCOUNTER → 2018-05-07 | Outpatient (CLI) | payer MEDICAID ==
[2018-05-07 18:07] VITALS: BP 163/51
--- NOTE | 2018-05-07 18:08 | Cardiology Stress Test Report ---
Stress Test Report Date of Procedure/Referring: Date of Procedure: May 07, 2018 PCP Morelia Nina MD Admitting Physician Stefan Choi MD Indications: Chest pain Baseline Blood Pressure: Blood Pressure Systolic: 163 Blood Pressure Diastolic: 51 Baseline EKG: Baseline EKG: sinus rhythm Summary & Conclusion: Summary: The patient was brought to the stress lab after informed consent was taken. Stress test was performed according to the standard estela protocol. Baseline EKG showed sinus rhythm. Maximum heart rate was 166 bpm and blood pressure 163/ 51 mmHg. Patient achieved 85% of maximum predicted heart rate response. Patient exercised for 7.21 minutes and achieved 8.9 mets. Patient did not have any chest pain, arrhythmias or ST segment changes during the stress test. Conclusion: Exercise stress test was negative for ischemia. Average functional capacity. Normotensive response to exercise. Morelia NINA MD May 07, 2018 6:07 pm
== END ==
LOC: CARD 13:39
PROVIDERS: ATTEND Internal Medicine Interventional Cardiology
DX: R07.9 Chest pain, unspecified (principal); R00.2 Palpitations; Z72.0 Tobacco use
CPT/HCPCS: 93017

== ENCOUNTER 2018-08-25 21:29 | Emergency (ER) | payer MEDICAID ==
[~2018-08-25] VITALS: Ht 162.6 cm; Wt 77.1 kg
[2018-08-25] MEDS ORDERED: DULO60CA58 (21:59)
[2018-08-25] MEDS ORDERED: QUET300T44 (21:59)
--- NOTE | 2018-08-25 22:26 | ED EENT ---
History of Present Illness General Chief Complaint: Oral/Throat Problems Stated Complaint: DIFFICULTY SWALLOWING,THROAT SWOLLEN Nursing Triage Note: left jaw pain/swelling with difficult/painful swallowing x1 day Source: patient History of Present Illness Date Seen by Provider: Aug 25, 2018 Time Seen by Provider: 22:00 Initial Comments PT ARRIVES VIA POV FROM HOME C/O SORE THROAT AND TENDER, SWOLLEN LYMPH NODES IN NECK--LEFT> RIGHT SYMPTOMS BEGAN YESTERDAY STATES IT HURTS TO SWALLOW, BUT IS ABLE TO EAT AND DRINK NO FEVER HAS HAD SLIGHT RUNNY NOSE, NO OTHER SYMPTOMS PT HAS HAD TONSILLECTOMY AND ALL TEETH REMOVED-PT WEARS DENTURES PCP: FT. ANN-MARIE AGUIAR Allergies and Home Medications Allergies Coded Allergies: Oxycodone (Verified Allergy, Mild, WELTS, ITCHING, 09/22/09) Amoxicillin (Unverified Adverse Reaction, Mild, YEAST INFECTION, 09/22/09) Patient Home Medication List Home Medication List Reviewed: Yes Review of Systems Review of Systems Constitutional: no symptoms reported; No fever Eyes: No Symptoms Reported Ears: No Symptoms Reported Nose: see HPI, congestion, clear discharge Mouth: no symptoms reported Throat: see HPI, pain; denies neck stiffness, denies hoarse, denies aphonia; painful swallowing Respiratory: no symptoms reported Cardiovascular: no symptoms reported Musculoskeletal: no symptoms reported Skin: no symptoms reported Neurological: No Symptoms Reported Hematologic/Lymphatic: See HPI, Swollen Glands Immunological/Allergic: no symptoms reported Past Kxngfxn-Nfpigx-Qizyrk Hx Patient Social History Alcohol Use: Denies Use Recreational Drug Use: No Smoking Status: Current Everyday Smoker (1 PPD) Type Used: Cigarettes 2nd Hand Smoke Exposure: Yes Recent Foreign Travel: No Contact w/Someone Who Travel: No Recent Infectious Disease Expo: No Recent Hopitalizations: No Immunizations Up To Date Tetanus Booster (TDap): Less than 5yrs PED Vaccines UTD: No Date of Influenza Vaccine: Jun 23, 2011 Seasonal Allergies Seasonal Allergies: No Past Medical History Surgeries: Yes (right shoulderX3 , left knee, ) Adenoidectomy, 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, Orthopedic, Tonsillectomy, Tubal Ligation Respiratory: Yes Asthma Cardiac: No Neurological: No : No 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 Disorders: No Female 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 Disorders: Denies 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: 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, Tubal Ligation Sexually Transmitted Disease: No HIV/AIDS: No Genitourinary: No Gastrointestinal: No Musculoskeletal: Yes (MULTIPLE ORTHO SURGERIES) Endocrine: No HEENT: Yes (S/P T&A; ALL TEETH REMOVED, DENTURES IN PLACE) Tonsilitis Cancer: No Psychosocial: Yes Sleep Difficulties, Anxiety, Depression Integumentary: No Blood Disorders: No Adverse Reaction/Blood Tranf: No Family Medical History Asthma 19 MOTHER G8 BROTHER Drug abuse 19 FATHER (currently) 19 MOTHER, Onset:20's - 25 Psychosocial problem 19 MOTHER (bipolar/depression) Physical Exam Vital Signs Vital Signs - First Documented 08/25/18 21:53 Temp 97.2 Pulse 82 Resp 18 B/P (MAP) 117/78 (91) Pulse Ox 98 O2 Delivery Room Air Height, Weight, BMI Height: 5'4.00" Weight: 170lbs. 0oz. [id number]; 20.60 BMI Method:Stated General Appearance: WD/WN, no apparent distress Eyes: bilateral eye normal inspection, bilateral eye PERRL, bilateral eye EOMI Ears: bilateral ear auricle normal, bilateral ear canal normal, bilateral ear TM normal Nose: normal inspection Mouth/Throat: No mandibular swelling, No maxillary swelling, No trismus, No uvula swelling, No voice changes; other (DENTURES IN PLACE; PHARYNGEAL ERYTHEMA , NO EXUDATE. UVULA NORMAL) Neck: full range of motion, supple, lymphadenopathy (R) (MILD ANTERIOR), lymphadenopathy (L) (MILD ANTERIOR) Cardiovascular: regular rate, rhythm, no murmur Respiratory: normal breath sounds, no respiratory distress, no accessory muscle use Gastrointestinal: soft Neurologic/Psychiatric: park manager II-XII nml as tested, no motor/sensory deficits, alert, normal mood/affect, oriented x 3 Skin: normal color, warm/dry; No rash Progress/Results/Core Measures Results/Orders Lab Results Laboratory Tests Test 08/25/18 22:11 Range/Units Group A Streptococcus Screen NEGATIVE NEGATIVE My Orders Orders - FALLON GARCIA DO Rapid Strep A Screen (08/25/18 22:07) Vital Signs/I&O 08/25/18 21:53 Temp 97.2 Pulse 82 Resp 18 B/P (MAP) 117/78 (91) Pulse Ox 98 O2 Delivery Room Air Blood Pressure Mean: 91 Departure Impression Primary Impression: Pharyngitis Disposition: 01 HOME, SELF-CARE Condition: Stable Departure-Patient Inst. Referrals: SMITA MORILLO MD (PCP/Family) Primary Care Physician Patient Instructions: Sore Throat, Adult (DC) Add. Discharge Instructions: TYLENOL AND MOTRIN NEEDED FOR PAIN OR FEVER FREQUENT SALT WATER GARGLES FOLLOW UP WITH YOUR DR IN 3-4 DAYS IF NO BETTER All discharge instructions reviewed with patient and/or family. Voiced understanding. Scripts Azithromycin (Zithromax) 500 Mg Tablet 500 MG PO DAILY, #5 TAB FOR INFECTION Prov: FALLON GARCIA DO 08/25/18 FALLON GARCIA DO Aug 25, 2018 22:25
[2018-08-25] MEDS ORDERED: AZIT500T PO (22:33)
[2018-08-25] MEDS ORDERED: AZITHROMYCIN 250 MG TAB (ZITHROMAX) PO ONE ×2 (22:35→22:45)
[2018-08-25 22:37] VITALS: BP 117/78
== END 2018-08-25 22:37 | disposition home or self-care (01) ==
LOC: EDUNIT# 21:29 → ER 21:31
DX: J02.9 Acute pharyngitis, unspecified (principal); J45.909 Unspecified asthma, uncomplicated; F41.9 Anxiety disorder, unspecified; F32.9 Major depressive disorder, single episode, unspecified; F17.210 Nicotine dependence, cigarettes, uncomplicated; Z90.710 Acquired absence of both cervix and uterus; Z90.89 Acquired absence of other organs; Z98.890 Other specified postprocedural states; Z98.51 Tubal ligation status; Z88.5 Allergy status to narcotic agent; Z88.0 Allergy status to penicillin
CPT/HCPCS: 87430; 99284

== ENCOUNTER → 2018-09-18 | Outpatient (CLI) | payer MEDICAID ==
[~2018-09-18] MED LIST changes: +AZIT500T PO; +DULO60CA58; +QUET300T44
--- NOTE | 2018-09-18 15:37 | Diagnostic Imaging Report ---
PROCEDURE: US abdomen complete. TECHNIQUE: Multiple real-time grayscale images were obtained over the abdomen in various projections. INDICATION: Abdominal pain. FINDINGS: The liver is upper limits of normal in size at 17.4 cm. No discrete liver mass is identified. The portal vein is patent and shows normal direction of flow. The gallbladder is without stones or sludge. No wall thickening or biliary ductal dilatation is seen. The visualized pancreas is unremarkable. Spleen is normal in size at 10.4 cm. Aorta is non-aneurysmal. IVC is unremarkable. Kidneys show normal cortical thickness and echogenicity. No calculi or hydronephrosis is seen. There is no ascites. IMPRESSION: Unremarkable abdominal ultrasound. Dictated by: Dictated on workstation # [id number]
== END ==
LOC: RAD 14:34
PROVIDERS: ATTEND Pediatrics
DX: R10.11 Right upper quadrant pain (principal); R19.7 Diarrhea, unspecified
CPT/HCPCS: 76700

== ENCOUNTER → 2018-09-24 | Outpatient (CLI) | payer MEDICAID ==
[~2018-09-24] MED LIST changes: +CATHETER FLUSH 10 ML SYR IV PRN
--- NOTE | 2018-09-24 20:14 | Diagnostic Imaging Report ---
INDICATION: Abdominal pain, fatigue. EXAMINATION: Hepatobiliary scan with ejection fraction. This study was performed following administration of 5.4 mCi of Choletec. 8 ounces of Ensure was also utilized for the calculation of ejection fraction. COMPARISON: There are no prior hepatobiliary scans available or comparison. FINDINGS: The abdominal ultrasound exam performed at 09/18/2018 failed to show any sign of cholelithiasis or acute cholecystitis. On this study, there is uptake of the radiotracer by the gallbladder before 30 minutes. This would weigh against the diagnosis of acute cholecystitis. There is also extension of the radiotracer into the small bowel indicating the common bile duct is not obstructed. The ejection fraction is 31% (normal 35% or greater). The reason for the slight diminished ejection fraction is not certain. IMPRESSION: 1. There is no evidence for an acute cholecystitis or for obstruction of the common bile duct. 2. The ejection fraction, however, is only 31% and below normal limits. Dictated by: Dictated on workstation # [id number]
== END ==
LOC: CARD 10:34
PROVIDERS: ATTEND Pediatrics
DX: R53.83 Other fatigue (principal)
CPT/HCPCS: 78227

== ENCOUNTER 2018-10-02 10:13 | Day surgery (SDC) | payer MEDICAID ==
[~2018-10-02] VITALS: Ht 162.6 cm; Wt 83.5 kg
[~2018-10-02 10:13] MED LIST changes: -CATHETER FLUSH 10 ML SYR IV PRN
[2018-10-02] MEDS: LACTATED RINGERS 1,000 ML IV PRN ×2 (10:40→14:26)
--- NOTE | 2018-10-02 10:40 | Progress Note-Pre Operative ---
Pre-Operative Progress Note H&P Reviewed The H&P was reviewed, patient examined and no changes noted. Time Seen by Provider: 10:36 Date H&P Reviewed: Oct 02, 2018 Time H&P Reviewed: 10:37 Pre-Operative Diagnosis: Biliary Dyskinesia MATHEW DAWSON DO Oct 02, 2018 10:40
[2018-10-02] MEDS ORDERED: CLINDAMYCIN 600 MG/50 ML IVPB 50 ML IV ONE ×2 (10:51→11:00)
[2018-10-02 11:05] VITALS: BP 97/70
[2018-10-02] MEDS ORDERED: VENL37.52 PO (11:31)
[2018-10-02] MEDS ORDERED: CYCL10TA9 PO (11:31)
[2018-10-02] MEDS ORDERED: BUPIVACAINE 0.5% 30 ML (SENSORCAINE) VIAL ONE (12:56)
[2018-10-02] MEDS ORDERED: LIDOCAINE/EPI 1%-1:100,000 (XYLOCAINE) 20ML ONE (12:57)
[2018-10-02] MEDS ORDERED: proPOfol 200 MG/20 ML (DIPRIVAN) VIAL IV ONE (13:02)
[2018-10-02] MEDS ORDERED: ONDANSETRON 4 MG/2 ML (SDV) Z0FRAN ONE ×2 (13:02→15:26)
[2018-10-02] MEDS ORDERED: GLYCOPYRROLATE 0.2 MG/ML (ROBINUL) 2 ML VIAL ONE (13:02)
[2018-10-02] MEDS ORDERED: fentaNYL INJECTION 100 MCG/2 ML AMP ONE ×2 (13:02→13:35)
[2018-10-02] MEDS ORDERED: ROCURONIUM 10 MG/ML 5 ML SYRINGE IV ONE (13:02)
[2018-10-02] MEDS ORDERED: SEVOFLURANE (ULTANE) 15 ML INHAL SOLN ONE ×2 (13:02→13:54)
[2018-10-02] MEDS ORDERED: DEXAMETHASONE 10 MG/ML (DECADRON) 1 ML VIAL ONE (13:02)
[2018-10-02] MEDS ORDERED: LIDOCAINE PF 2% 5 ML (XYLOCAINE) VIAL ONE (13:02)
[2018-10-02] MEDS ORDERED: NEOSTIGMINE 1 MG/ML 5 ML SYRINGE ONE (13:02)
[2018-10-02] MEDS ORDERED: MIDAZOLAM 2 MG/2 ML (VERSED) VIAL ONE (13:03)
[2018-10-02] MEDS ORDERED: diphenhydrAMINE 50 MG/ML INJ (BENADRYL) ONE (13:28)
--- NOTE | 2018-10-02 14:12 | Progress Note-Post Operative ---
Post-Operative Progess Note Surgeon (s)/Supervisor Parachute Manufacturing (s) Surgeon MATHEW DAWSON DO Supervisor [employer]achute Manufacturing: Enzo Pre-Operative Diagnosis Biliary Dyskinesia Post-Operative Diagnosis Same Procedure & Operative Findings Date of Procedure 10/02/18 Procedure Performed/Findings Lap Katerine with IOC Anesthesia Type GET Estimated Blood Loss Estimated blood loss (mL): scant Specimens/Packing Specimens Removed GB and contents MATHEW DAWSON DO Oct 02, 2018 14:12
[2018-10-02] MEDS ORDERED: ACHD5005 PO (14:14)
--- NOTE | 2018-10-02 14:15 | Discharge Inst-Surgical ---
Discharge Inst-Surgical Depart Medication/Instructions New, Converted or Re-Newed RX: RX Given to Pt/Family Patient Instructions Follow up Appt: Make appointment for 1 week. [phone] Instructions: No lifting greater than 20 pounds. No strenuous activity. May shower in 24 hours, no tub bath or soaking. Use incentive spirometer at home as directed. No Smoking Skin/Wound Care: May remove bandages in am. You need to leave the Dermabond on incision it will fall off on it's own. Symptoms to Report: Appetite Changes, Extremity Discoloration, Numbness/Tingling, Swelling Increased , Bleeding Excessive, Eyesight Changes, Pain Increased, Urine Color Change, Constipation(Persistent), Fever over 101 degree F, Pain/Pressure in chest, Urinating Difficulty, Cough Up/Vomit Blood, Heart Beat Irreg/Pounding, Pain/ Pressure in jaw, Cramps in feet or legs, Lightheadedness, Pain/Pressure in shoulder, Diarrhea(Persistent), Memory Changes Suddenly, Questions/Concerns, Weight gain consecutive days, Dizziness/Fainting, Nausea/Vomiting, Shortness of Breath, Weight gain over 2 pounds If questions or concerns contact your physician Or seek help at emergency department. Activity Activity as Tolerated: Yes Activity Instructions: Avoid Stress to Incision Driving Instructions: No Driving/Refer to Diet Discharge Diet: Avoid Fatty Foods, Low Fat/Low Cholesterol Diet After 24 Hours: Clear Liquid if Nauseous If Any Problems/Questions/Issu: Contact Your Physician, Go to Emergency Room Skin/Wound Care Infection Signs and Symptoms: Increased Redness, Foul Odor of Wound, Increased Drainage, Skin Itchy or Has a Rash, Increased Swelling, Temperature Above 101 F Wound Care Comment: heating pad to shoulder or neck tonight for pain Bathing Instructions: Shower Stitches/[place]/Dermabond Dis: Dermabond Ice Pack: Ice On and Off Site MATHEW DAWSON DO Oct 02, 2018 14:15
[2018-10-02] MEDS ORDERED: HYDROmorphone 2 MG/ML VIAL (DILAUDID) IV ONE (14:30)
[2018-10-02] MEDS ORDERED: ONDANSETRON 4 MG/2 ML (SDV) Z0FRAN IVP PRN (14:30)
--- NOTE | 2018-10-02 15:04 | Anesthesia-General Post-Op ---
General Patient Condition Mental Status/LOC: Same as Preop Cardiovascular: Satisfactory Nausea/Vomiting: Absent Respiratory: Satisfactory Pain: Controlled Complications: Absent Post Op Complications Complications None Follow Up Care/Instructions Patient Instructions None needed. Anesthesia/Patient Condition Patient Condition Patient is doing well, no complaints, stable vital signs, no apparent adverse anesthesia problems. No complications reported per nursing. INDIGO ACOSTA CRNA Oct 02, 2018 15:04
[2018-10-02 15:10] VITALS: BP 109/63
[2018-10-02 15:40] VITALS: BP 107/61
[2018-10-02] MEDS ORDERED: ONDANSETRON 4 MG/2 ML (SDV) Z0FRAN IVP ONE (15:45)
--- NOTE | 2018-10-02 16:21 | Diagnostic Imaging Report ---
INDICATION: Intraoperative cholangiogram. COMPARISON: None. TOTAL FLUOROSCOPY TIME: 19 seconds. TOTAL NUMBER OF FLUOROSCOPIC IMAGES SAVED: 31. FINDINGS: Multiple digital subtraction views of the right upper abdominal quadrant were obtained during intraoperative cholangiogram. Images provided show contrast filling in the intrahepatic and extrahepatic biliary ductal systems and spilling into the small bowel. There is small amount of contrast extravasation. Biliary ductal system is nondistended. No distinct intraluminal filling defects are seen. Please note, interpreting radiologist was not present during the procedure. IMPRESSION: Intraoperative cholangiogram, as described above. Dictated by: Dictated on workstation # [id number]
[2018-10-02] MEDS ORDERED: HYDROcodone/APAP 5 MG/325 MG (LORTAB) TAB ONE (16:36)
[2018-10-02 16:40] VITALS: BP 98/57
[2018-10-02] MEDS ORDERED: HYDROcodone/APAP 5 MG/325 MG (LORTAB) TAB PO ONE (16:45)
--- NOTE | 2018-10-03 00:53 | OPERATIVE REPORT ---
DATE OF SERVICE: 10/02/2018 PREOPERATIVE DIAGNOSIS: Biliary dyskinesia. POSTOPERATIVE DIAGNOSIS: Biliary dyskinesia. PROCEDURE: Laparoscopic cholecystectomy, intraoperative cholangiogram. SURGEON: Jhonatan Loepz DO. FLAG SIGNALMAN: Josesito Giraldo DO. ANESTHESIA: General endotracheal tube. SPECIMEN: Gallbladder and contents. BLOOD LOSS: Scant. FLUIDS: Per anesthesia. POSTOPERATIVE CONDITION: Stable. INDICATION FOR PROCEDURE: The patient is a 28-year-old female who has been having abdominal pain, has been having full outpatient workup and ultrasound was negative, but HIDA scan showed ejection fraction of 31%, which is indicative of biliary dyskinesia. Did have a discussion with the patient regarding the fact that taking her gallbladder may not fix all of her problems. I still think she needs EGD and colonoscopy. She understood this and wanted her gallbladder out. FINDINGS: The patient had a mildly distended gallbladder with some adhesions that is usually indicative of some gallbladder attacks. No other obvious pathology seen. PROCEDURE NOTE: After informed consent was obtained, the patient was brought to the operating room, placed on the table in supine position. She was sterilely prepped and draped in normal fashion. Local lidocaine was used to infiltrate the skin below the umbilicus. Made an incision with #11 blade, carried down through the skin and subcutaneous tissue, then deepened down to subcutaneous tissue with Bovie electrocautery and the fascia. Fascia incised with Bovie electrocautery and bluntly entered the abdomen, swept a finger around, placed 0 Vicryl [id number] suture, then placed 11 mm trocar port under direct visualization. Created pneumoperitoneum. Placed 3 more ports in normal fashion using local lidocaine, 11 blade for stab incision and the VersaStep system, all done under direct visualization, one subxiphoid and two in the right lower quadrant, trying to hide them in the bikini line. The patient then placed slightly reverse Trendelenburg and rotated left, able to grasp the gallbladder at the fundus and taken in superior direction, saw some adhesions, took a picture of this and then started taking these adhesions down and then able to grasp down to Blanchard's pouch and pulled in the inferolateral direction, started dissecting out the cystic duct and cystic artery, able to get around the cystic duct and the cystic artery and placed one clip distally in the cystic duct and one distally and two proximally on the cystic artery. Cut the cystic duct long-term through Metzenbaum scissors and then placed a cholangiogram catheter, shot a cholangiogram. Good spillage of dye down the common bile duct into the small intestine as well as up into common hepatic and right and left hepatics. Cholangiogram catheter was then removed and two clips placed proximally on the cystic duct. Cystic duct and cystic artery then cut with Metzenbaum scissors and then removed the gallbladder from bed of the liver with L-hook cautery, which was completely removed, placed a bag in the abdomen, placed the gallbladder in a bag and removed this through infraumbilical incision. Placed the port back in the abdomen, copiously irrigated with normal saline, suctioned this out, obtained hemostasis in the bed of liver with the Bovie electrocautery. At this point, then placed the patient supine, removed all ports under direct visualization, allowed pneumoperitoneum to escape as well as suctioned it out. I then closed the infraumbilical incision, closing the fascia with 0 Vicryl [id number] suture, closed the three small 5 mm incisions with a single interrupted 4-0 undyed Monocryl subcuticular stitch and closed the infraumbilical incision with interrupted 4-0 undyed Monocryl subcuticular stitches. Area was cleaned and dried. Dermabond was placed as well as Band-Aids. The patient then transferred to recovery room in stable condition. Sponge, instrument and needle count correct at the end of the case. Dr. Giraldo assisted in this case helping to make incisions, close incisions as well as identify anatomy and hold anatomy out of the way. Job ID: [id number] DocumentID: [id number] Dictated Date: 10/02/2018 14:11:40 Shuttle Filler Date: 10/03/2018 00:53:03 Dictated By: JHONATAN LOPEZ DO
== END 2018-10-02 16:46 | disposition home or self-care (01) ==
LOC: SDC 10:13
PROVIDERS: ATTEND Surgery
DX: K81.1 Chronic cholecystitis (principal); R00.2 Palpitations; F41.9 Anxiety disorder, unspecified; J45.909 Unspecified asthma, uncomplicated; F17.210 Nicotine dependence, cigarettes, uncomplicated; Z79.899 Other long term (current) drug therapy
CPT/HCPCS: 84703; 87081

== ENCOUNTER → 2018-10-20 | Outpatient (CLI) | payer MEDICAID ==
[~2018-10-20] MED LIST changes: +CYCL10TA9 PO; +VENL37.52 PO
[2018-10-20 15:19] LABS: BASOPHILS % (AUTO) 0 % (0-10); EOSINOPHILS # (AUTO) 0.1 10^3/uL (0.0-0.3); EOSINOPHILS % (AUTO) 0 % (0-10); HEMATOCRIT 45 % (35-52); HEMOGLOBIN 14.9 G/DL (11.5-16.0); LYMPHOCYTES # (AUTO) 1.8 X 10^3 (1.0-4.0); LYMPHOCYTES % (AUTO) 16 % (12-44); MEAN CORPUSCULAR HEMOGLOBIN 32 PG (25-34); MEAN CORPUSCULAR HGB CONC 33 G/DL (32-36); MEAN CORPUSCULAR VOLUME 96 FL (80-99); MEAN PLATELET VOLUME 10.4 FL (7.4-10.4); MONOCYTES # (AUTO) 0.6 X 10^3 (0.0-1.0); MONOCYTES % (AUTO) 6 % (0-12); NEUTROPHILS # (AUTO) 8.7 X 10^3 (1.8-7.8); NEUTROPHILS % (AUTO) 78 % (42-75); PLATELET COUNT 289 10^3/uL (130-400); WHITE BLOOD COUNT 11.2 10^3/uL (4.3-11.0)
[2018-10-20 15:36] LABS: ALANINE AMINOTRANSFERASE 85 U/L (0-55); ALBUMIN 4.4 GM/DL (3.2-4.5); ALKALINE PHOSPHATASE 224 U/L (40-136); BILIRUBIN,TOTAL 1.2 MG/DL (0.1-1.0); BUN/CREATININE RATIO 12; CALCIUM 9.8 MG/DL (8.5-10.1); CARBON DIOXIDE 23 MMOL/L (21-32); CHLORIDE 108 MMOL/L (98-107); CREATININE SERUM 0.68 MG/DL (0.60-1.30); GFR ESTIMATED > 60; GLUCOSE 97 MG/DL (70-105); POTASSIUM 3.8 MMOL/L (3.6-5.0); SODIUM 143 MMOL/L (135-145); TOTAL PROTEIN 7.1 GM/DL (6.4-8.2)
== END ==
LOC: LAB 14:58
PROVIDERS: ATTEND Surgery
DX: R11.10 Vomiting, unspecified (principal)
CPT/HCPCS: 36415; 80053; 85025

== ENCOUNTER → 2018-10-27 | Outpatient (CLI) | payer MEDICAID ==
[2018-10-27 14:03] LABS: BASOPHILS # (AUTO) 0.1 10^3/uL (0.0-0.1); BASOPHILS % (AUTO) 1 % (0-10); EOSINOPHILS # (AUTO) 0.1 10^3/uL (0.0-0.3); EOSINOPHILS % (AUTO) 1 % (0-10); HEMATOCRIT 45 % (35-52); HEMOGLOBIN 15.6 G/DL (11.5-16.0); LYMPHOCYTES # (AUTO) 3.2 X 10^3 (1.0-4.0); LYMPHOCYTES % (AUTO) 31 % (12-44); MEAN CORPUSCULAR HEMOGLOBIN 33 PG (25-34); MEAN CORPUSCULAR HGB CONC 34 G/DL (32-36); MEAN CORPUSCULAR VOLUME 96 FL (80-99); MEAN PLATELET VOLUME 10.7 FL (7.4-10.4); MONOCYTES # (AUTO) 0.5 X 10^3 (0.0-1.0); MONOCYTES % (AUTO) 5 % (0-12); NEUTROPHILS # (AUTO) 6.6 X 10^3 (1.8-7.8); NEUTROPHILS % (AUTO) 63 % (42-75); PLATELET COUNT 263 10^3/uL (130-400); RED CELL DISTRIBUTION WIDTH 14.9 % (10.0-14.5); WHITE BLOOD COUNT 10.4 10^3/uL (4.3-11.0)
[2018-10-27 14:22] LABS: ALANINE AMINOTRANSFERASE 38 U/L (0-55); ALBUMIN 4.4 GM/DL (3.2-4.5); ALKALINE PHOSPHATASE 197 U/L (40-136); BILIRUBIN,TOTAL 0.3 MG/DL (0.1-1.0); BUN/CREATININE RATIO 9; CALCIUM 9.8 MG/DL (8.5-10.1); CARBON DIOXIDE 27 MMOL/L (21-32); CHLORIDE 109 MMOL/L (98-107); CREATININE SERUM 0.65 MG/DL (0.60-1.30); GFR ESTIMATED > 60; GLUCOSE 98 MG/DL (70-105); POTASSIUM 3.7 MMOL/L (3.6-5.0); SODIUM 143 MMOL/L (135-145)
== END ==
LOC: LAB 13:45
PROVIDERS: ATTEND Surgery
DX: R11.10 Vomiting, unspecified (principal)
CPT/HCPCS: 36415; 80053; 85025

== ENCOUNTER 2018-11-05 05:44 | Outpatient (CLI) | payer MEDICAID ==
[~2018-11-05] VITALS: Ht 162.6 cm; Wt 79.8 kg
[~2018-11-05 05:44] MED LIST changes: -QUET300T44; +QUET300T44 PO
[2018-11-05] MEDS ORDERED: PANT40TA3 PO (13:52)
[2018-11-05] MEDS ORDERED: L.AC1CAP6 PO (13:52)
== END 2018-11-05 13:56 | disposition home or self-care (01) ==
LOC: PREOP 05:44
PROVIDERS: ATTEND Surgery
DX: Z01.818 Encounter for other preprocedural examination (principal)

== ENCOUNTER 2018-11-09 07:29 | Day surgery (SDC) | payer MEDICAID ==
[~2018-11-09] VITALS: Ht 162.6 cm; Wt 79.8 kg
[~2018-11-09 07:29] MED LIST changes: +L.AC1CAP6 PO; +PANT40TA3 PO
[2018-11-09] MEDS ORDERED: LACTATED RINGERS 1,000 ML IV ONE (07:36)
[2018-11-09] MEDS ORDERED: LACTATED RINGERS 1,000 ML IV STA (08:00)
[2018-11-09 08:03] VITALS: BP 94/65
--- NOTE | 2018-11-09 08:31 | Progress Note-Pre Operative ---
Pre-Operative Progress Note H&P Reviewed The H&P was reviewed, patient examined and no changes noted. Time Seen by Provider: 08:25 Date H&P Reviewed: November 09, 2018 Time H&P Reviewed: 08:23 Pre-Operative Diagnosis: Diarrhea, Nausea, Vomiting, Abd pain, Heartburn sy mptoms Assessment/Plan Assessment and Plan Assess & Plan/Chief Complaint Pt has been having heartburn symptoms and Protonix plus OTC meds are not helping. Plan to add EGD to be done at same time as colonoscopy. Discussed risks and complications with pt not limited to pain, bleeding and even esophageal perforation. All questions answered to her satisfaction. MATHEW DAWSON DO November 09, 2018 08:30
[2018-11-09] MEDS ORDERED: PROPOFOL INJECTION 50 ML IV ONE ×2 (09:01→09:23)
[2018-11-09] MEDS ORDERED: MIDAZOLAM 2 MG/2 ML (VERSED) VIAL ONE (09:03)
--- NOTE | 2018-11-09 09:56 | Progress Note-Post Operative ---
Post-Operative Progess Note Surgeon (s)/Engine Hostler (s) Surgeon MATHEW DAWSON DO Engine Hostler: none Pre-Operative Diagnosis Diarrhea, Nausea, Vomiting, Abd pain, Heartburn symptoms Post-Operative Diagnosis Gastritis Hiatal Hernia Colon Polyp Internal Hemorrhoids Procedure & Operative Findings Date of Procedure 11/09/18 Procedure Performed/Findings EGD with bx Colon with cold bx Anesthesia Type IV sedation by RETAIL SOLAR ADVISOR Estimated Blood Loss Estimated blood loss (mL): scant Specimens/Packing Specimens Removed Duodenal bx Antral Bx Body of Stomach bx GE jxn bx Cecal Bx of polyp TI bx Sigmoid colon bx MATHEW DAWSON DO November 09, 2018 09:56
--- NOTE | 2018-11-09 09:57 | Endoscopy Discharge Instruct ---
Endo Procedure/Findings Findings 1.: Gastritis 2.: Hiatal Hernia 3.: Polyp 4.: Internal Hemorrhoids Discharge Instructions - Activity: You might feel a little sleepy until tomorrow. This is due to the medicine you received to relax you. Until tomorrow, you should: NOT drive a car, operate machinery or power tools. NOT drink any alcoholic beverages. NOT make any important decisions or sign importortant papers. Do not return to work until tomorrow, unless otherwise instructed. Resume previous activities tomorrow. Diet: Start by taking liquids. If you tolerate liquids, advance to solid food. make an appointment for one week Notify Physician - If you experience excessive bleeding, unusual abdominal pain, fever, or chest pain, contact your doctor immediately. Follow-Up: - I have received and understand the above instructions and will call my doctor if I have any further questions. Patient Signature Date Nurse Signature Other (Relationship) MATHEW DAWSON DO November 09, 2018 09:57
[2018-11-09 10:30] VITALS: BP 109/77
[2018-11-09 11:00] VITALS: BP 112/79
[2018-11-09 11:05] VITALS: BP 112/79
--- NOTE | 2018-11-09 13:02 | Anesthesia-General Post-Op ---
MAC Patient Condition Mental Status/LOC: Same as Preop Cardiovascular: Satisfactory Nausea/Vomiting: Absent Respiratory: Satisfactory Pain: Controlled Complications: Absent Post Op Complications Complications None Follow Up Care/Instructions Patient Instructions None needed. Anesthesiology Discharge Order Discharge Order Patient is doing well, no complaints, stable vital signs, no apparent adverse anesthesia problems. No complications reported per nursing. MARIA GUADALUPE TRINIDAD CRNA November 09, 2018 13:02
--- NOTE | 2018-11-09 15:10 | OPERATIVE REPORT ---
DATE OF SERVICE: 11/09/2018 PREOPERATIVE DIAGNOSES: Right upper quadrant pain, nausea, vomiting, heartburn symptoms, chronic diarrhea. FINDINGS: The patient had gastritis as well as a hiatal hernia and whitened villi in the duodenum. She also had a small colon polyp, internal hemorrhoids and flattened villi in the terminal ileum. The whitened villi was in the duodenum. PROCEDURES: 1. EGD with biopsy. 2. Colonoscopy with biopsy. SURGEON: Jhonatan Lopez DO SALON RECEPTIONIST: None. ANESTHESIA: IV sedation by DEVELOPMENTAL TRAINING COUNSELOR. SPECIMEN: One biopsy from duodenum, one biopsy from the antrum, one biopsy from the body of stomach. Two biopsies from the GE junction as well as then one biopsy of colon polyp in the cecum, biopsy of the terminal ileum and then a sigmoid colon biopsy. BLOOD LOSS: Scant. FLUIDS: Per anesthesia. POSTOPERATIVE CONDITION: Stable. INDICATION FOR PROCEDURE: The patient is a 28-year-old female who has had chronic abdominal pain, nausea, vomiting, diarrhea has had her gallbladder out, heartburn symptoms and nothing seems to be getting better. FINDINGS: The patient had some gastritis also noted villi in the duodenum were completely tayo out. She had a small hiatal hernia and some gastritis in the colon. She had a small polyp in the cecum right near the appendix, looked and they were very flattened villi, did not appear completely normal and then she had some very small internal hemorrhoids. PROCEDURE NOTE: After informed consent was obtained, the patient was brought to the endoscopy suite and placed in the left lateral decubitus position. She was administered IV sedation by DEVELOPMENTAL TRAINING COUNSELOR, who monitored her vitals the entire time, heart rate, blood pressure and pulse ox. The scope was inserted down the mouth through the esophagus into the stomach. Upon entering the stomach, no gastritis, pushed into the duodenum. Duodenum all of the villi were whitened out, not the normal pink color, elected to do a biopsy here. Took a picture and backed up into the antrum and took a biopsy of antrum then the body of stomach also looked a little bit inflamed. So, did a biopsy of the body of stomach, retroflexed the scope, saw a small hiatal hernia, took a picture of this and then pulled back into the GE junction and did 2 biopsies at the GE junction, pulled the scope up the esophagus, which looked normal and then pulled out of the mouth. Switched scopes, switched gloves, went down to do the colonoscopy, inserted the scope, pushed all the way to about 120 cm, able to get to the cecum, took a picture of the appendiceal orifice and noted a small polyp near this. I did a cold biopsy of this and then with a pullback, I was able to get in the terminal ileum. In the terminal ileum, the villi looked very flattened out, not normal appearing. I did elect to do a biopsy here and then slowly withdrew the scope insufflating to look circumferentially at the yeung looking at the cecum, up the ascending colon to the hepatic flexure then down the transverse colon, the splenic flexure into the descending colon and down in the sigmoid. Throughout here, did not see any ulcers really, but maybe some mild inflammation, so elected to just random biopsy in the sigmoid colon and did not see any colitis, pulled then back into the rectum, retroflexed the rectal vault, saw some minimal internal hemorrhoids, took a picture of this and then removed the scope. The patient tolerated the procedure and she was recovered in endoscopy suite. Job ID: [id number] DocumentID: [id number] Dictated Date: 11/09/2018 10:06:06 Information Broker Date: 11/09/2018 15:09:54 Dictated By: JHONATAN LOPEZ DO
== END 2018-11-09 11:05 | disposition home or self-care (01) ==
LOC: ENDO 07:29
PROVIDERS: ATTEND Surgery
DX: K29.70 Gastritis, unspecified, without bleeding (principal); K44.9 Diaphragmatic hernia without obstruction or gangrene; D12.0 Benign neoplasm of cecum; K21.9 Gastro-esophageal reflux disease without esophagitis; K64.8 Other hemorrhoids; K63.89 Other specified diseases of intestine; Z88.1 Allergy status to other antibiotic agents; Z88.5 Allergy status to narcotic agent; F17.210 Nicotine dependence, cigarettes, uncomplicated; J45.909 Unspecified asthma, uncomplicated; Z79.899 Other long term (current) drug therapy

== ENCOUNTER 2019-03-21 23:27 | Emergency (ER) | payer MEDICAID ==
[~2019-03-21] VITALS: Ht 162.5 cm; Wt 81.7 kg
[~2019-03-21 23:27] MED LIST changes: -DULO60CA58; +DULO60CA59
[2019-03-21] MEDS ORDERED: RX-TRAMADOL 50 MG (ULTRAM) TAB PPK#4 PO ONE (23:45)
[2019-03-21] MEDS ORDERED: CEPHALEXIN 250 MG (KEFLEX) CAP PO ONE (23:45)
--- NOTE | 2019-03-21 23:50 | ED Upper Extremity ---
General Chief Complaint: Upper Extremity Stated Complaint: LEFT HAND SWELLING,PAIN History of Present Illness Date Seen by Provider: Mar 21, 2019 Time Seen by Provider: 23:30 Initial Comments The patient is a 28-year-old female with a history of anxiety and depression but no other chronic medical problems for which she takes daily medication. She presents with concern for discomfort to her volar left hand in association with a laceration which was repaired with suture yesterday at [facility] after being cut with glass at a football game she was attending. Patient was not prescribed anything for discomfort and has been taking ibuprofen and Tylenol without complete relief of discomfort and was also concerned because she had some very mild tingling of her fingertips on the left and was concerned about infection so decided to come in for reevaluation. She denies fevers, nausea or vomiting or other systemic symptoms of concern. Tetanus up-to-date. Allergies and Home Medications Allergies Coded Allergies: oxycodone (Verified Allergy, Mild, WELTS, ITCHING, 11/05/18) amoxicillin (Verified Adverse Reaction, Mild, YEAST INFECTION, 11/09/18) Home Medications L.acidoph & Paracasei,B.lactis 1 Each Capsule, 1 EACH PO DAILY, (Reported) Pantoprazole Sodium 40 Mg Tablet.dr, 40 MG PO DAILY, (Reported) Quetiapine Fumarate 300 Mg Tablet, 300 MG PO HS, (Reported) Venlafaxine HCl 37.5 Mg Cap.er.24h, 37.5 MG PO TID, (Reported) Patient Home Medication List Home Medication List Reviewed: Yes Review of Systems Constitutional: see HPI All Other Systems Reviewed Negative Unless Noted: Yes (Negative excepted noted.) Past Phfhzye-Esvxoq-Jcmqas Hx Past Med/Social Hx: Reviewed Nursing Past Med/Soc Hx Patient Social History Type Used: Cigarettes 2nd Hand Smoke Exposure: Yes Recent Foreign Travel: No Contact w/Someone Who Travel: No Recent Hopitalizations: No Immunizations Up To Date Tetanus Booster (TDap): Less than 5yrs PED Vaccines UTD: No Date of Influenza Vaccine: Jun 23, 2011 Seasonal Allergies Seasonal Allergies: No Past Medical History Surgeries: Yes (right shoulderX3 , left knee, FULL MOUTH EXTRACTION) Adenoidectomy, Gallbladder, 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, Orthopedic, Tonsillectomy, Tubal Ligation Respiratory: Yes Asthma Cardiac: Yes Palpitations Neurological: Yes (HX OF SEIZURE FROM ANXIETY ATTACK ) 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 Disorders: No 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 History: 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, Tubal Ligation Sexually Transmitted Disease: No HIV/AIDS: No Genitourinary: No Gastrointestinal: Yes Gastroesophageal Reflux, Chronic Diarrhea Musculoskeletal: Yes (MULTIPLE ORTHO SURGERIES) Endocrine: No HEENT: Yes (GLASSES, DENTURES) Tonsilitis Loss of Vision: Bilateral Hearing Impairment: Denies Cancer: No Psychosocial: Yes Sleep Difficulties, Anxiety, Depression Integumentary: No Blood Disorders: No Adverse Reaction/Blood Tranf: No (N/A) Family Medical History Reviewed Nursing Family Hx Asthma 19 MOTHER G8 BROTHER Drug abuse 19 FATHER (currently) 19 MOTHER, Onset:s - Psychosocial problem 19 MOTHER (bipolar/depression) Physical Exam Vital Signs Capillary Refill : Height, Weight, BMI Height: 5'4.00" Weight: 176lbs. 0.0oz. [id number]; 30.2 BMI Method:Stated General Appearance: no apparent distress This is a younger female appearing nontoxic and in no acute distress. Head is normocephalic and atraumatic. Neck is supple and nontender. Oropharynx is moist. Lungs are clear to auscultation in all stations. There is a normal S1 and S2 without rubs or gallops and capillary refill is appropriate, less than 2 seconds globally. Abdomen is soft, nontender and nondistended. Skin is warm and dry without cyanosis, clubbing or edema. Psychiatrically, the patient demonstrates appropriate mood and affect and is alert. From a musculoskeletal standpoint, evaluation of the left upper extremity is remarkable for an approximately 8 cm laceration to the volar aspect of the left hand at the mid palm transversely. The wound site is without erythema, warmth, swelling, significant tenderness or any evidence of purulence or dehiscence. No streaking redness. No significant pain with ranging of any joint of the left upper extremity. Left upper extremity is neurovascularly intact with strength 5 out of 5, sensation intact to light touch in median, radial and ulnar nerve distributions, radial pulse 2+, capillary refill less than 2 seconds, hand warm and well-perfused. Progress/Results/Core Measures Results/Orders My Orders Orders - STEVE SILVERIO MD Rx-Tramadol Hcl (Rx-Ultram) (03/21/19 23:45) Cephalexin Capsule (Keflex Capsule) (03/21/19 23:45) Progress Progress Note : Progress Note Clinical examination quite reassuring and the patient is neurovascularly intact to the LUE. Reassurance provided that wound appears to be healing appropriately without significant signs or symptoms of infection and that a minimal decrease in normal sensation to light touch to the fingertips may be expected if there is swelling and inflammation associated with an acute laceration injury to the hand which compresses sensory nerves transiting the area of inflammation. Patient is counseled that we would be glad to provide a prescription for Keflex to cover her for infectious process given dirty wound which she feels was perhaps ineffectively disinfected yesterday. We will also provide a take home pack for tramadol and a short course of tramadol for home breakthrough discomfort. Patient is counseled to follow up very closely with her primary care physician in the next 1-2 days and to return immediately to the emergency department if symptoms worsen or if other new symptoms of concern develop. She understands and agrees. All questions are answered. Departure Impression Primary Impression: Encounter for re-check of laceration wound Disposition: 01 HOME, SELF-CARE Condition: Improved Departure-Patient Inst. Referrals: SMITA MORILLO MD (PCP/Family) Primary Care Physician Add. Discharge Instructions: Follow up with your primary care physician in next 1-2 days for a wound recheck as needed. Sutures will need to be removed in approximately 7-10 days after initial placement. Take the antibiotics until they are gone. Alternate ibuprofen and Tylenol as discussed for symptom control and you may take tramadol for breakthrough pain, but do not drive, operate machinery or work after taking tramadol. Do not take tramadol together with your benzodiazepine as the 2 together can make you too sleepy. Return immediately to the emergency department with worsening symptoms, worsening pain or any other new concerns. Scripts Ibuprofen (Ibuprofen) 800 Mg Tablet 800 MG PO Q8H PRN for PAIN, #30 TAB 0 Refills Prov: STEVE SILVERIO MD 03/21/19 Cephalexin (Keflex) 250 Mg Capsule 250 MG PO Q6H for 7 Days, #28 CAP Prov: STEVE SILVERIO MD 03/21/19 Tramadol HCl (Tramadol HCl) 50 Mg Tablet 50 MG PO Q6H PRN for PAIN for 3 Days, #8 TAB 0 Refills Prov: STEVE SILVERIO MD 03/21/19 STEVE SILVERIO MD Mar 21, 2019 23:50
[2019-03-21] MEDS ORDERED: CEPH-506 PO (23:54)
[2019-03-21] MEDS ORDERED: TRAM50TA2 PO (23:54)
[2019-03-21] MEDS ORDERED: IBUP-1780 PO (23:54)
[2019-03-21 23:55] VITALS: BP 147/98
== END 2019-03-21 23:56 | disposition home or self-care (01) ==
LOC: EDUNIT# 23:27 → ER FS 23:28
DX: S61.412D Laceration without foreign body of left hand, subsequent encounter (principal); F41.9 Anxiety disorder, unspecified; F32.9 Major depressive disorder, single episode, unspecified; J45.909 Unspecified asthma, uncomplicated; K21.9 Gastro-esophageal reflux disease without esophagitis; Z90.710 Acquired absence of both cervix and uterus; Z98.51 Tubal ligation status; Z88.0 Allergy status to penicillin; Z88.5 Allergy status to narcotic agent; Z77.22 Contact with and (suspected) exposure to environmental tobacco smoke (acute) (chronic); W25.XXXD Contact with sharp glass, subsequent encounter
CPT/HCPCS: 99283

== ENCOUNTER 2019-05-26 21:26 | Emergency (ER) | payer MEDICAID ==
[~2019-05-26] VITALS: Ht 160 cm; Wt 83.4 kg
[~2019-05-26 21:26] MED LIST changes: +CEPH-506 PO; +IBUP-1780 PO; +TRM50T PO
[2019-05-26] MEDS ORDERED: OXCA300T18 (21:44)
[2019-05-26] MEDS ORDERED: VORT10TA (21:44)
[2019-05-26] MEDS ORDERED: OXCA300T4 PO (21:44)
[2019-05-26] MEDS ORDERED: PRAZ1CAP2 (21:44)
[2019-05-26 21:45] LABS: BILIRUBIN,URINE NEGATIVE (NEGATIVE); CLARITY,URINE CLEAR; COLOR,URINE YELLOW; GLUCOSE, URINE (UA) NEGATIVE (NEGATIVE); KETONES,URINE NEGATIVE (NEGATIVE); LEUKOCYTE ESTERASE ,URINE NEGATIVE (NEGATIVE); NITRITE,URINE NEGATIVE (NEGATIVE); PH,URINE 6.5 (5-9); PROTEIN,URINE NEGATIVE (NEGATIVE)
[2019-05-26] MEDS ORDERED: QUET300T2 PO (21:45)
--- NOTE | 2019-05-26 21:46 | ED General ---
General Chief Complaint: General Problems/Pain Stated Complaint: BACK PAIN, LEG CRAMPING,FATIGUE Source of Information: Patient Exam Limitations: No Limitations History of Present Illness Date Seen by Provider: May 26, 2019 Time Seen by Provider: 21:44 Initial Comments To ER with reports of mid low back pain for one week general fatigue and bilateral lower extremities cramping. Had pain that started in the plantar surface of the right foot no known injury that has now progressed up the right calf and spread over to the left calf. Her psychiatrist suggested a blood clot that she should go to the emergency room. Timing/Duration: 1-2 Days Severity: Moderate Associated Systoms: Denies Symptoms (Medical) Allergies and Home Medications Allergies Coded Allergies: oxycodone (Verified Allergy, Mild, WELTS, ITCHING, 11/05/18) amoxicillin (Verified Adverse Reaction, Mild, YEAST INFECTION, 11/09/18) Patient Home Medication List Home Medication List Reviewed: Yes Review of Systems Review of Systems Constitutional: see HPI EENTM: see HPI Respiratory: no symptoms reported Cardiovascular: no symptoms reported Genitourinary: no symptoms reported Musculoskeletal: no symptoms reported Skin: no symptoms reported Psychiatric/Neurological: No Symptoms Reported Hematologic/Lymphatic: No Symptoms Reported Immunological/Allergic: no symptoms reported (O) Past Ckchscz-Jubpwl-Smlmit Hx Patient Social History Type Used: Cigarettes 2nd Hand Smoke Exposure: Yes Recent Foreign Travel: No Contact w/Someone Who Travel: No Recent Hopitalizations: No Immunizations Up To Date Tetanus Booster (TDap): Less than 5yrs PED Vaccines UTD: No Date of Influenza Vaccine: Jun 23, 2011 Seasonal Allergies Seasonal Allergies: No Past Medical History Surgeries: Yes (right shoulderX3 , left knee, FULL MOUTH EXTRACTION) Adenoidectomy, Gallbladder, 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, Orthopedic, Tonsillectomy, Tubal Ligation Respiratory: Yes Asthma Cardiac: Yes Palpitations Neurological: Yes (HX OF SEIZURE FROM ANXIETY ATTACK ) 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 Disorders: No Female 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 Disorders: Ovarian 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: 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, Tubal Ligation Sexually Transmitted Disease: No HIV/AIDS: No Genitourinary: No Gastrointestinal: Yes Gastroesophageal Reflux, Chronic Diarrhea Musculoskeletal: Yes (MULTIPLE ORTHO SURGERIES) Endocrine: No HEENT: Yes (GLASSES, DENTURES) Tonsilitis Loss of Vision: Bilateral Hearing Impairment: Denies Cancer: No Psychosocial: Yes Sleep Difficulties, Anxiety, Depression Integumentary: No Blood Disorders: No Adverse Reaction/Blood Tranf: No (N/A) Family Medical History Asthma 19 MOTHER G8 BROTHER Drug abuse 19 FATHER (currently) 19 MOTHER, Onset:20's - 25 Psychosocial problem 19 MOTHER (bipolar/depression) Physical Exam Vital Signs Vital Signs - First Documented 05/26/19 21:32 Temp 36.9 Pulse 102 Resp 18 B/P (MAP) 113/76 (88) Pulse Ox 98 O2 Delivery Room Air Capillary Refill : Height, Weight, BMI Height: 5'4.00" Weight: 176lbs. 0.0oz. 79.300073ci; 30.00 BMI Method:Stated General Appearance: No Apparent Distress, WD/WN Eyes: Bilateral Eye Normal Inspection, Bilateral Eye PERRL, Bilateral Eye EOMI Neck: Full Range of Motion, Normal Inspection Respiratory: Normal Breath Sounds, No Accessory Muscle Use, No Respiratory Distress Cardiovascular: Regular Rate, Rhythm, Normal Peripheral Pulses Gastrointestinal: Normal Bowel Sounds, Non Tender, Soft Extremity: Normal Inspection Neurologic/Psychiatric: Alert, Oriented x3 Skin: Normal Color, Warm/Dry Progress/Results/Core Measures Suspected Sepsis SIRS Temperature: Pulse: Respiratory Rate: Laboratory Tests 05/26/19 21:50: White Blood Count 11.2H Blood Pressure / Mean: Laboratory Tests 05/26/19 21:50: Platelet Count 259 Results/Orders Lab Results Laboratory Tests Test 05/26/19 21:38 05/26/19 21:50 Range/Units Urine Color YELLOW Urine Clarity CLEAR Urine pH 6.5 5-9 Urine Specific [place] 1.020 1.016-1.022 Urine Protein NEGATIVE NEGATIVE Urine Glucose (UA) NEGATIVE NEGATIVE Urine Ketones NEGATIVE NEGATIVE Urine Nitrite NEGATIVE NEGATIVE Urine Bilirubin NEGATIVE NEGATIVE Urine Urobilinogen 0.2 < = 1.0 MG/DL Urine Leukocyte Esterase NEGATIVE NEGATIVE Urine RBC (Auto) NEGATIVE NEGATIVE Urine RBC NONE /HPF Urine WBC NONE /HPF Urine Squamous Epithelial Cells 10-25 H /HPF Urine Crystals NONE /LPF Urine Bacteria TRACE /HPF Urine Casts NONE /LPF Urine Mucus SMALL H /LPF Urine Culture Indicated NO White Blood Count 11.2 H 4.3-11.0 10^3/uL Red Blood Count 4.60 4.35-5.85 10^6/uL Hemoglobin 15.5 11.5-16.0 G/DL Hematocrit 45 35-52 % Mean Corpuscular Volume 99 80-99 FL Mean Corpuscular Hemoglobin 34 25-34 PG Mean Corpuscular Hemoglobin Concent 34 32-36 G/DL Red Cell Distribution Width 14.1 10.0-14.5 % Platelet Count 259 130-400 10^3/uL Mean Platelet Volume 10.6 H 7.4-10.4 FL Neutrophils (%) (Auto) 53 42-75 % Lymphocytes (%) (Auto) 38 12-44 % Monocytes (%) (Auto) 6 0-12 % Eosinophils (%) (Auto) 2 0-10 % Basophils (%) (Auto) 1 0-10 % Neutrophils # (Auto) 6.0 1.8-7.8 X 10^3 Lymphocytes # (Auto) 4.2 H 1.0-4.0 X 10^3 Monocytes # (Auto) 0.7 0.0-1.0 X 10^3 Eosinophils # (Auto) 0.2 0.0-0.3 10^3/uL Basophils # (Auto) 0.1 0.0-0.1 10^3/uL D-Dimer 0.34 0.00-0.49 UG/ML Sodium Level 143 135-145 MMOL/L Potassium Level 3.7 3.6-5.0 MMOL/L Chloride Level 108 H 98-107 MMOL/L Carbon Dioxide Level 21 21-32 MMOL/L Anion Gap 14 5-14 MMOL/L Blood Urea Nitrogen 13 7-18 MG/DL Creatinine 0.74 0.60-1.30 MG/DL Estimat Glomerular Filtration Rate > 60 BUN/Creatinine Ratio 18 Glucose Level 113 H 70-105 MG/DL Calcium Level 9.6 8.5-10.1 MG/DL My Orders Orders - MAGDALENO VIVAR APRN Ua Culture If Indicated (05/26/19 21:30) Cbc With Automated Diff (05/26/19 21:30) Basic Metabolic Panel (05/26/19 21:30) Fibrin Degradation Products (05/26/19 21:40) Vital Signs/I&O 05/26/19 21:32 Temp 36.9 Pulse 102 Resp 18 B/P (MAP) 113/76 (88) Pulse Ox 98 O2 Delivery Room Air Capillary Refill : Departure Impression Primary Impression: Leg cramps Additional Impression: Fatigue Disposition: 01 HOME, SELF-CARE Condition: Stable Departure-Patient Inst. Decision time for Depature: 22:18 Referrals: SMITA MORILLO MD (PCP/Family) Primary Care Physician Patient Instructions: Fatigue Add. Discharge Instructions: 1. You do not have any evidence of a blood clot anywhere. Return to ER for any concerns, follow-up with your doctor next week 3. All discharge instructions reviewed with patient and/or family. Voiced understanding. MAGDALENO VIVAR ESCALATOR OPERATOR May 26, 2019 21:46 POS
[2019-05-26 21:55] LABS: BACTERIA,URINE TRACE /HPF
[2019-05-26 21:58] LABS: BASOPHILS # (AUTO) 0.1 10^3/uL (0.0-0.1); BASOPHILS % (AUTO) 1 % (0-10); EOSINOPHILS # (AUTO) 0.2 10^3/uL (0.0-0.3); EOSINOPHILS % (AUTO) 2 % (0-10); HEMATOCRIT 45 % (35-52); HEMOGLOBIN 15.5 G/DL (11.5-16.0); LYMPHOCYTES # (AUTO) 4.2 X 10^3 (1.0-4.0); LYMPHOCYTES % (AUTO) 38 % (12-44); MEAN CORPUSCULAR HEMOGLOBIN 34 PG (25-34); MEAN CORPUSCULAR HGB CONC 34 G/DL (32-36); MEAN CORPUSCULAR VOLUME 99 FL (80-99); MEAN PLATELET VOLUME 10.6 FL (7.4-10.4); MONOCYTES # (AUTO) 0.7 X 10^3 (0.0-1.0); MONOCYTES % (AUTO) 6 % (0-12); NEUTROPHILS % (AUTO) 53 % (42-75); PLATELET COUNT 259 10^3/uL (130-400); RED CELL DISTRIBUTION WIDTH 14.1 % (10.0-14.5); WHITE BLOOD COUNT 11.2 10^3/uL (4.3-11.0)
[2019-05-26 22:18] LABS: BUN/CREATININE RATIO 18; CALCIUM 9.6 MG/DL (8.5-10.1); CARBON DIOXIDE 21 MMOL/L (21-32); CHLORIDE 108 MMOL/L (98-107); CREATININE SERUM 0.74 MG/DL (0.60-1.30); GFR ESTIMATED > 60; GLUCOSE 113 MG/DL (70-105); POTASSIUM 3.7 MMOL/L (3.6-5.0); SODIUM 143 MMOL/L (135-145)
[2019-05-26 22:20] VITALS: BP 113/76
== END 2019-05-26 22:23 | disposition home or self-care (01) ==
LOC: EDUNIT# 21:26 → ER 21:28
DX: R25.2 Cramp and spasm (principal); R53.83 Other fatigue; K21.9 Gastro-esophageal reflux disease without esophagitis; J45.909 Unspecified asthma, uncomplicated; F41.9 Anxiety disorder, unspecified; F32.9 Major depressive disorder, single episode, unspecified; Z88.0 Allergy status to penicillin; Z88.5 Allergy status to narcotic agent; Z77.22 Contact with and (suspected) exposure to environmental tobacco smoke (acute) (chronic); Z98.51 Tubal ligation status; Z90.710 Acquired absence of both cervix and uterus
CPT/HCPCS: 36415; 80048; 81000; 85025; 85379

== ENCOUNTER 2020-07-21 12:48 | Emergency (ER) | payer MEDICAID ==
[~2020-07-21] VITALS: Ht 162 cm; Wt 90.0 kg
[~2020-07-21 12:48] MED LIST changes: +OXCA300T18; +OXCA300T4 PO; -PANT40TA3 PO; +PANT40TA52 PO; +PRAZ1CAP2; +QUET300T2 PO; +VORT10TA
[2020-07-21] MEDS ORDERED: KETOROLAC 30 MG/ML VIAL IVP ONE (13:00)
--- NOTE | 2020-07-21 13:00 | ED Abdominal Pain ---
General Chief Complaint: Abdominal/GI Problems Stated Complaint: POSSIBLE KIDNEY STONES Source of Information: Patient Exam Limitations: No Limitations History of Present Illness Date Seen by Provider: Jul 21, 2020 Time Seen by Provider: 12:59 Initial Comments To ER by EMS from home with reports of left lower quadrant abdominal pain. This will be her third visit to the ER, the last 2 were at [place]. These visits have occurred within the past 2 months. She is frustrated because she has kidney stones. She feels like nothing is being done. However she also admits that she has not followed up with urology as instructed nor has she seen her primary care doctor for this. She was given 50 mcg of fentanyl in route which took her pain from 10 out of 10 down to 5 out of 10. Timing/Duration: 1-2 Days Severity/Quality: Moderate Location: [facility]Q Radiation: No Radiation Activities at Onset: None Allergies and Home Medications Allergies Coded Allergies: oxycodone (Verified Allergy, Mild, WELTS, ITCHING, 11/05/18) amoxicillin (Verified Adverse Reaction, Mild, YEAST INFECTION, 11/09/18) Home Medications Hydrocodone/Acetaminophen 1 Each Tablet, 1 TAB PO Q4H PRN for PAIN-MODERATE (5- 7) Prescribed by: MAGDALENO VIVAR on 07/21/20 1431 Ibuprofen 800 Mg Tablet, 800 MG PO Q8H PRN for PAIN-MILD Prescribed by: MAGDALENO VIVAR on 07/21/20 1431 Sulfamethoxazole/Trimethoprim 1 Each Tablet, 1 EACH PO BID Prescribed by: MAGDALENO VIVAR on 07/21/20 1431 Patient Home Medication List Home Medication List Reviewed: Yes Review of Systems Review of Systems Constitutional: see HPI; No chills, No fever EENTM: No Symptoms Reported Respiratory: No Symptoms Reported Cardiovascular: No Symptoms Reported Gastrointestinal: See HPI, Abdominal Pain Genitourinary: See HPI, Other (Dysuria) Musculoskeletal: no symptoms reported Skin: no symptoms reported Psychiatric/Neurological: No Symptoms Reported Endocrine: No Symptoms Reported Hematologic/Lymphatic: No Symptoms Reported Past Rywqplg-Rrtzcd-Bpfarm Hx Patient Social History Alcohol Use: Denies Use Smoking Status: Current Everyday Smoker Type Used: Cigarettes 2nd Hand Smoke Exposure: Yes Recent Hopitalizations: No Immunizations Up To Date Tetanus Booster (TDap): Less than 5yrs PED Vaccines UTD: No Date of Influenza Vaccine: Jun 23, 2011 Seasonal Allergies Seasonal Allergies: No Past Medical History Surgeries: Yes (right shoulderX3 , left knee) Adenoidectomy, Gallbladder, 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, Orthopedic, Tonsillectomy, Tubal Ligation Respiratory: Yes Asthma Cardiac: Yes Palpitations Neurological: No 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 Disorders: No Female 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 Disorders: Ovarian 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, Tubal Ligation Sexually Transmitted Disease: No HIV/AIDS: No Genitourinary: No Gastrointestinal: Yes Gastroesophageal Reflux, Chronic Diarrhea Musculoskeletal: No Endocrine: No HEENT: Yes (GLASSES, DENTURES) Tonsilitis Loss of Vision: Bilateral Hearing Impairment: Denies Cancer: No Psychosocial: Yes Sleep Difficulties, Anxiety, Depression Integumentary: No Blood Disorders: No Adverse Reaction/Blood Tranf: No (N/A) Family Medical History Asthma 19 MOTHER G8 BROTHER Drug abuse 19 FATHER (currently) 19 MOTHER, Onset:20 - Psychosocial problem 19 MOTHER (bipolar/depression) Physical Exam Vital Signs Vital Signs - First Documented 07/21/20 12:51 Temp 36.5 Pulse 84 Resp 16 B/P (MAP) 126/83 (97) Pulse Ox 99 O2 Delivery Room Air Capillary Refill : Height/Weight/BMI Height: 5'4.00" Weight: 176lbs. 0.0oz. 79.735973te; 32.00 BMI Method:Stated General Appearance: WD/WN, no apparent distress Neck: non-tender, full range of motion Respiratory: no respiratory distress, no accessory muscle use Gastrointestinal: normal bowel sounds, non tender, soft Extremities: normal range of motion, non-tender Neurologic/Psychiatric: alert, normal mood/affect, oriented x 3 Skin: normal color, warm/dry Progress/Results/Core Measures Results/Orders Lab Results Laboratory Tests Test 07/21/20 12:55 07/21/20 13:06 Range/Units White Blood Count 11.6 H 4.3-11.0 10^3/uL Red Blood Count 4.33 3.80-5.11 10^6/uL Hemoglobin 14.2 11.5-16.0 g/dL Hematocrit 42 35-52 % Mean Corpuscular Volume 98 80-99 fL Mean Corpuscular Hemoglobin 33 25-34 pg Mean Corpuscular Hemoglobin Concent 34 32-36 g/dL Red Cell Distribution Width 12.5 10.0-14.5 % Platelet Count 260 130-400 10^3/uL Mean Platelet Volume 10.7 9.0-12.2 fL Immature Granulocyte % (Auto) 0 % Neutrophils (%) (Auto) 66 42-75 % Lymphocytes (%) (Auto) 26 12-44 % Monocytes (%) (Auto) 5 0-12 % Eosinophils (%) (Auto) 1 0-10 % Basophils (%) (Auto) 1 0-10 % Neutrophils # (Auto) 7.7 1.8-7.8 10^3/uL Lymphocytes # (Auto) 3.0 1.0-4.0 10^3/uL Monocytes # (Auto) 0.6 0.0-1.0 10^3/uL Eosinophils # (Auto) 0.2 0.0-0.3 10^3/uL Basophils # (Auto) 0.1 0.0-0.1 10^3/uL Immature Granulocyte # (Auto) 0.0 0.0-0.1 10^3/uL Sodium Level 143 135-145 MMOL/L Potassium Level 4.0 3.6-5.0 MMOL/L Chloride Level 108 H 98-107 MMOL/L Carbon Dioxide Level 26 21-32 MMOL/L Anion Gap 9 5-14 MMOL/L Blood Urea Nitrogen 9 7-18 MG/DL Creatinine 0.71 0.60-1.30 MG/DL Estimat Glomerular Filtration Rate > 60 BUN/Creatinine Ratio 13 Glucose Level 106 H 70-105 MG/DL Calcium Level 8.9 8.5-10.1 MG/DL Corrected Calcium 8.9 8.5-10.1 MG/DL Total Bilirubin 0.3 0.1-1.0 MG/DL Aspartate Amino Transf (AST/SGOT) 26 5-34 U/L Alanine Aminotransferase (ALT/SGPT) 38 0-55 U/L Alkaline Phosphatase 109 40-136 U/L Total Protein 6.4 6.4-8.2 GM/DL Albumin 4.0 3.2-4.5 GM/DL Urine Color YELLOW Urine Clarity CLEAR Urine pH 7.5 5-9 Urine Specific [place] 1.010 L 1.016-1.022 Urine Protein NEGATIVE NEGATIVE Urine Glucose (UA) NEGATIVE NEGATIVE Urine Ketones NEGATIVE NEGATIVE Urine Nitrite NEGATIVE NEGATIVE Urine Bilirubin NEGATIVE NEGATIVE Urine Urobilinogen 0.2 < = 1.0 MG/DL Urine Leukocyte Esterase NEGATIVE NEGATIVE Urine RBC (Auto) NEGATIVE NEGATIVE Urine RBC 0-2 /HPF Urine WBC RARE /HPF Urine Squamous Epithelial Cells 5-10 /HPF Urine Crystals NONE /LPF Urine Bacteria TRACE /HPF Urine Casts NONE /LPF Urine Mucus SMALL H /LPF Urine Culture Indicated NO Urine Opiates Screen NEGATIVE NEGATIVE Urine Oxycodone Screen NEGATIVE NEGATIVE Urine Methadone Screen NEGATIVE NEGATIVE Urine Propoxyphene Screen NEGATIVE NEGATIVE Urine Barbiturates Screen NEGATIVE NEGATIVE Ur Tricyclic Antidepressants Screen POSITIVE H NEGATIVE Urine Phencyclidine Screen NEGATIVE NEGATIVE Urine Amphetamines Screen NEGATIVE NEGATIVE Urine Methamphetamines Screen NEGATIVE NEGATIVE Urine Benzodiazepines Screen NEGATIVE NEGATIVE Urine Cocaine Screen NEGATIVE NEGATIVE Urine Cannabinoids Screen POSITIVE H NEGATIVE My Orders Orders - MAGDALENO VIVAR APRN Cbc With Automated Diff (07/21/20 12:56) Comprehensive Metabolic Panel (07/21/20 12:56) Ua Culture If Indicated (07/21/20 12:56) Drug Screen Stat (Urine) (07/21/20 12:56) Ct Abd/Pelvis Wo(Kidney Stone) (07/21/20 12:56) Ed Iv/Invasive Line Start (07/21/20 12:56) Ketorolac Injection (Toradol Injection) (07/21/20 13:00) Medications Given in ED Current Medications Medications Dose Ordered Sig/Chanel Route Start Time Stop Time Status Last Admin Dose Admin Ketorolac Tromethamine 15 mg ONCE ONCE IVP 07/21/20 13:00 07/21/20 13:01 DC 07/21/20 13:20 15 MG Vital Signs/I&O 07/21/20 12:51 Temp 36.5 Pulse 84 Resp 16 B/P (MAP) 126/83 (97) Pulse Ox 99 O2 Delivery Room Air Diagnostic Imaging Diagonstic Imaging: CT Comments NAME: ROBERTOEVATRACY Aparicio [facility] REC#: [id number] PT STATUS: REG ER : 1990 PHYSICIAN: MAGDALENO VIVAR APRN ADMIT DATE: 07/21/20/ER Draft Date of Exam:07/21/20 CT ABD/PELVIS WO(KIDNEY STONE) PROCEDURE: CT urinary tract, rule out kidney stone. TECHNIQUE: Multiple contiguous axial images were obtained through the abdomen and pelvis without the use of intravenous contrast. Auto Exposure Controls were utilized during the CT exam to meet ALARA standards for radiation dose reduction. INDICATION: Left posterior abdominal pain and hematuria. Patient has prior history of kidney stones. CORRELATION is made with prior CT from 09/18/2015. The lung bases are clear. The liver is unremarkable. Gallbladder is surgically absent. There is no biliary ductal dilatation. Pancreas and spleen are unremarkable. No adrenal mass is detected. Right kidney does contain a nonobstructing calculus 3 mm in size. No left-sided renal calculi are seen. However, the left ureter is prominent and mildly dilated. There is a calculus in the distal left ureter just above the UVJ measuring 4 mm producing mild hydroureteronephrosis. Bladder is unremarkable. The aorta is non-aneurysmal. Small and large bowel loops are normal caliber. No free fluid or fluid collection. IMPRESSION: 1. Nonobstructing right-sided nephrolithiasis. 2. A 4 mm distal left ureteric calculus producing mild hydroureteronephrosis. Dictated on workstation # [id number] Dict: 07/21/20 1347 Trans: 07/21/20 1354 [facility] [id number] Interpreted by: KRIS RASHEED MD Electronically signed by: Departure Impression Primary Impression: Ureteral calculus, left Disposition: 01 HOME, SELF-CARE Condition: Stable Departure-Patient Inst. Decision time for Depature: 14:23 Referrals: SMITA MORILLO MD (PCP/Family) Primary Care Physician ABIMAEL GARCIA MD Patient Instructions: Kidney Stones (DC) Add. Discharge Instructions: 1. return to er for any concerns 2. You must follow-up with Dr. Garcia. All discharge instructions reviewed with patient and/or family. Voiced understa nding. Scripts Ibuprofen (Ibuprofen) 800 Mg Tablet 800 MG PO Q8H PRN for PAIN-MILD, #20 TAB Prov: MAGDALENO VIVAR TELECOMMUNICATIONS ANALYST 07/21/20 Hydrocodone/Acetaminophen (Hydrocodone-Acetamin 5-325 mg) 1 Each Tablet 1 TAB PO Q4H PRN for PAIN-MODERATE (5-7), #14 TAB Prov: MAGDALENO VIVAR TELECOMMUNICATIONS ANALYST 07/21/20 Sulfamethoxazole/Trimethoprim (Bactrim Ds Tablet) 1 Each Tablet 1 EACH PO BID, #10 TAB Prov: MAGDALENO VIVAR TELECOMMUNICATIONS ANALYST 07/21/20 MAGDALENO VIVAR TELECOMMUNICATIONS ANALYST Jul 21, 2020 13:00
[2020-07-21 13:05] LABS: BASOPHILS # (AUTO) 0.1 10^3/uL (0.0-0.1); BASOPHILS % (AUTO) 1 % (0-10); EOSINOPHILS # (AUTO) 0.2 10^3/uL (0.0-0.3); EOSINOPHILS % (AUTO) 1 % (0-10); HEMATOCRIT 42 % (35-52); HEMOGLOBIN 14.2 g/dL (11.5-16.0); LYMPHOCYTES % (AUTO) 26 % (12-44); MEAN CORPUSCULAR HEMOGLOBIN 33 pg (25-34); MEAN CORPUSCULAR HGB CONC 34 g/dL (32-36); MEAN CORPUSCULAR VOLUME 98 fL (80-99); MEAN PLATELET VOLUME 10.7 fL (9.0-12.2); MONOCYTES # (AUTO) 0.6 10^3/uL (0.0-1.0); MONOCYTES % (AUTO) 5 % (0-12); NEUTROPHILS # (AUTO) 7.7 10^3/uL (1.8-7.8); NEUTROPHILS % (AUTO) 66 % (42-75); PLATELET COUNT 260 10^3/uL (130-400); WHITE BLOOD COUNT 11.6 10^3/uL (4.3-11.0)
[2020-07-21 13:11] LABS: BILIRUBIN,URINE NEGATIVE (NEGATIVE); CLARITY,URINE CLEAR; COLOR,URINE YELLOW; GLUCOSE, URINE (UA) NEGATIVE (NEGATIVE); KETONES,URINE NEGATIVE (NEGATIVE); LEUKOCYTE ESTERASE ,URINE NEGATIVE (NEGATIVE); NITRITE,URINE NEGATIVE (NEGATIVE); PH,URINE 7.5 (5-9); PROTEIN,URINE NEGATIVE (NEGATIVE)
[2020-07-21 13:15] LABS: CHLORIDE 108 MMOL/L (98-107); SODIUM 143 MMOL/L (135-145)
[2020-07-21 13:16] LABS: CALCIUM 8.9 MG/DL (8.5-10.1)
[2020-07-21 13:17] LABS: GLUCOSE 106 MG/DL (70-105); TOTAL PROTEIN 6.4 GM/DL (6.4-8.2)
[2020-07-21 13:18] LABS: CARBON DIOXIDE 26 MMOL/L (21-32)
[2020-07-21 13:18] LABS: BACTERIA,URINE TRACE /HPF; RBC,URINE 0-2 /HPF; WBC,URINE RARE /HPF
[2020-07-21 13:19] LABS: BILIRUBIN,TOTAL 0.3 MG/DL (0.1-1.0)
[2020-07-21 13:21] LABS: ALKALINE PHOSPHATASE 109 U/L (40-136); CREATININE SERUM 0.71 MG/DL (0.60-1.30); GFR ESTIMATED > 60
[2020-07-21 13:22] LABS: BUN/CREATININE RATIO 13
[2020-07-21 13:24] LABS: ALANINE AMINOTRANSFERASE 38 U/L (0-55)
[2020-07-21 13:27] LABS: AMPHETAMINE SCREEN, URINE NEGATIVE (NEGATIVE); BARBITURATE SCREEN URINE NEGATIVE (NEGATIVE); BENZODIAZEPINES SCREEN URINE NEGATIVE (NEGATIVE); CANNABINOID SCREEN, URINE POSITIVE (NEGATIVE); COCAINE SCREEN URINE NEGATIVE (NEGATIVE); METHADONE STAT NEGATIVE (NEGATIVE); METHAMPHETAMINE SCREEN URINE S NEGATIVE (NEGATIVE); OPIATE SCREEN URINE NEGATIVE (NEGATIVE); OXYCODONE STAT NEGATIVE (NEGATIVE); PROPOXYPHENE STAT NEGATIVE (NEGATIVE); TRICYCLIC ANTIDEPRESSANTS SCRE POSITIVE (NEGATIVE)
--- NOTE | 2020-07-21 13:54 | Diagnostic Imaging Report ---
PROCEDURE: CT urinary tract, rule out kidney stone. TECHNIQUE: Multiple contiguous axial images were obtained through the abdomen and pelvis without the use of intravenous contrast. Auto Exposure Controls were utilized during the CT exam to meet ALARA standards for radiation dose reduction. INDICATION: Left posterior abdominal pain and hematuria. Patient has prior history of kidney stones. CORRELATION is made with prior CT from 09/18/2015. The lung bases are clear. The liver is unremarkable. Gallbladder is surgically absent. There is no biliary ductal dilatation. Pancreas and spleen are unremarkable. No adrenal mass is detected. Right kidney does contain a nonobstructing calculus 3 mm in size. No left-sided renal calculi are seen. However, the left ureter is prominent and mildly dilated. There is a calculus in the distal left ureter just above the UVJ measuring 4 mm producing mild hydroureteronephrosis. Bladder is unremarkable. The aorta is non-aneurysmal. Small and large bowel loops are normal caliber. No free fluid or fluid collection. IMPRESSION: 1. Nonobstructing right-sided nephrolithiasis. 2. A 4 mm distal left ureteric calculus producing mild hydroureteronephrosis. Dictated by: Dictated on workstation # [id number]
--- NOTE | 2020-07-21 13:57 | NUR ---
Report given to Katiana AVILA.
--- NOTE | 2020-07-21 14:15 | NUR ---
PT UP TO BR W/O ASSIST, NO DISTRESS OR DISCOMFORT NOTED
[2020-07-21] MEDS ORDERED: SULF1TAB35 PO (14:31)
[2020-07-21] MEDS ORDERED: IBUP-1780 PO (14:31)
[2020-07-21] MEDS ORDERED: ACHD5005 PO (14:31)
[2020-07-21 14:49] VITALS: BP 115/79
--- NOTE | 2020-07-21 14:49 | NUR ---
PT DISCHARGED TO HOME WITH INSTR. PT TO TAKE MEDS DIRECTED, F/U W/ PCP ET RETURN IF SYMPTOMS CHANGE OR GET WORSE. PT DID VOICE SHE DID NOT HAVE TRANSPORTATION HOME. THIS RN OFFERED TO GET PT A CAB BUT PT REFUSED STATING "I'LL WALK THE 15 MILES HOME." THIS RN VOICED UNDERSTANDING BUT DID OFFER AGAIN TO HELP W/ TRANSPORTATION.
== END 2020-07-21 14:49 | disposition home or self-care (01) ==
LOC: EDUNIT# 12:48 → ER 12:49
DX: N13.2 Hydronephrosis with renal and ureteral calculous obstruction (principal); F17.210 Nicotine dependence, cigarettes, uncomplicated; Z88.5 Allergy status to narcotic agent; Z88.1 Allergy status to other antibiotic agents
CPT/HCPCS: 36415; 74176; 80053; 80306; 81000; 85025

== ENCOUNTER 2021-01-30 12:51 | Emergency (ER) | payer MEDICAID ==
[~2021-01-30] VITALS: Ht 160 cm; Wt 70.3 kg
[~2021-01-30 12:51] MED LIST changes: +QUET300T19 PO; -QUET300T44 PO
--- NOTE | 2021-01-30 13:23 | ED Respiratory ---
General Chief Complaint: Respiratory Problems Stated Complaint: COVID+;COUGH;SORE THROAT Nursing Triage Note: Pt reports being diagnosed with COVID 19 yesterday. Pt reports symptoms began around Friday last week, with symptoms worsening on Friday. Pt reports cough, vomiting, chest pain, and headache. Source: patient Exam Limitations: no limitations (MAGDALENO VIVAR APRN) History of Present Illness Date Seen by Provider: Jan 30, 2021 Time Seen by Provider: 13:18 Initial Comments To ER by private vehicle with reports of cough shortness of breath and sore throat. She developed the symptoms on 01/26/2021 and tested positive last night at [facility]. She called the health department today to report her symptoms and was advised to come to the ER for chest x-ray and Regeneron infusion. She states the cough is her most bothersome symptom. She did receive the [employer] vaccine in August. Timing/Duration: constant Severity: moderate Associated Symptoms: cough, fever/chills, shortness of breath, sore throat (MAGDALENO VIVAR APRN) Allergies and Home Medications Allergies Coded Allergies: oxycodone (Verified Allergy, Mild, WELTS, ITCHING, 11/05/18) amoxicillin (Verified Adverse Reaction, Mild, YEAST INFECTION, 11/09/18) Home Medications Hydrocodone/Acetaminophen 1 Each Tablet, 1 TAB PO Q4H PRN for PAIN-MODERATE (5- 7) Prescribed by: MAGDALENO VIVAR on 07/21/20 1431 Hydrocodone/Acetaminophen 1 Each Tablet, 1 TAB PO Q4H PRN for COUGH Prescribed by: MAGDALENO VIVAR on 01/30/21 1326 Hydrocodone/Acetaminophen 1 Each Tablet, 1 TAB PO Q4H PRN for PAIN-MODERATE (5- 7) Prescribed by: MAGDALENO VIVAR on 01/30/21 1419 Last Action: New Order Ibuprofen 800 Mg Tablet, 800 MG PO Q8H PRN for PAIN-MILD Prescribed by: MAGDALENO VIVAR on 07/21/20 1431 Sulfamethoxazole/Trimethoprim 1 Each Tablet, 1 EACH PO BID Prescribed by: MAGDALENO VIVAR on 07/21/20 1431 Patient Home Medication List Home Medication List Reviewed: Yes (MAGDALENO VIVAR APRN) Review of Systems Review of Systems Constitutional: see HPI EENTM: see HPI, throat pain Respiratory: see HPI, cough Cardiovascular: no symptoms reported Genitourinary: no symptoms reported Musculoskeletal: no symptoms reported Skin: no symptoms reported Psychiatric/Neurological: No Symptoms Reported Hematologic/Lymphatic: No Symptoms Reported Immunological/Allergic: no symptoms reported (MAGDALENO VIVAR APRN) Past Gujhtfa-Gzgfjs-Vpfree Hx Patient Social History Tobacco Use?: Yes Tobacco type used: Cigarettes Substance use?: Yes Substance type: Marijuana Alcohol Use?: No Pt feels they are or have been: No (MAGDALENO VIVAR APRN) Immunizations Up To Date Tetanus Booster (TDap): Less than 5yrs PED Vaccines UTD: No First/Initial COVID19 Vaccinat: 09/10 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 Director Client Services: [employer] (MAGDALENO VIVAR APRN) Seasonal Allergies Seasonal Allergies: No (MAGDALENO VIVAR APRN) Past Medical History Surgeries: Yes (right shoulderX3 , left knee) Adenoidectomy, Gallbladder, 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, Orthopedic, Tonsillectomy, Tubal Ligation Respiratory: Yes Asthma Cardiac: Yes Palpitations Neurological: No 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 Disorders: No Female 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 Disorders: 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 Sexually Transmitted Disease: No HIV/AIDS: No Genitourinary: No Gastrointestinal: Yes Gastroesophageal Reflux, Chronic Diarrhea Musculoskeletal: No Endocrine: No HEENT: Yes (GLASSES, DENTURES) Tonsilitis Loss of Vision: Bilateral Hearing Impairment: Denies Cancer: No Psychosocial: Yes Sleep Difficulties, Anxiety, Depression Integumentary: No Blood Disorders: No Adverse Reaction/Blood Tranf: No (N/A) (MAGDALENO VIVAR APRN) Family Medical History Asthma 19 MOTHER G8 BROTHER Drug abuse 19 FATHER (currently) 19 MOTHER, Onset:20's - 25 Psychosocial problem 19 MOTHER (bipolar/depression) Physical Exam Vital Signs - First Documented 01/30/21 13:05 Temp 37.0 Pulse 106 Resp 20 B/P (MAP) 112/74 (87) Pulse Ox 97 O2 Delivery Room Air (GOKUL PRESCOTT MD) Capillary Refill : Less Than 3 Seconds (MAGDALENO VIVAR APRN) Height: 5'4.00" Weight: 176lbs. 0.0oz. 79.383301ry; 27.00 BMI Method:Stated General Appearance: WD/WN, no apparent distress, other (Alert and oriented no distress. Pleasant. Lungs are clear with good air movement. After ambulating to room 10 oxygen saturation is 9698% on room air. Though tachycardic with a rate of 105.) Eyes: Bilateral Eye Normal Inspection, Bilateral Eye PERRL, Bilateral Eye EOMI Neck: non-tender, full range of motion Respiratory: no respiratory distress, no accessory muscle use Cardiovascular: regular rate, rhythm, no murmur Gastrointestinal: normal bowel sounds, non tender, soft Extremities: normal range of motion, non-tender Neurologic/Psychiatric: alert, normal mood/affect, oriented x 3 Skin: normal color, warm/dry (MAGDALENO VIVAR APRN) Progress/Results/Core Measures Suspected Sepsis SIRS Temperature: Pulse: 106 Respiratory Rate: 20 Blood Pressure 112 /74 Mean: 87 (MAGDALENO VIVAR APRN) Results/Orders Vital Signs/I&O 01/30/21 01/30/21 13:05 14:08 Temp 37.0 Pulse 106 101 Resp 20 18 B/P (MAP) 112/74 (87) 126/106 Pulse Ox 97 98 O2 Delivery Room Air Room Air (GOKUL PRESCOTT MD) Vital Signs/I&O Capillary Refill : Less Than 3 Seconds (MAGDALENO VIVAR APRN) Blood Pressure Mean: 87 Departure Communication (Admissions) I discussed with her the emergency use authorization of Regeneron and she would like to proceed with using it. (MAGDALENO VIVAR APRN) Impression Primary Impression: COVID-19 Disposition: 01 HOME, SELF-CARE Condition: Stable Departure-Patient Inst. Decision time for Depature: 13:20 (MAGDALENO VIVAR APRN) Referrals: TITA TRIANA APRN (PCP/Family) Primary Care Physician Patient Instructions: COVID-19 Overview, REGEN-COV (casirivimab and imdevimab) FDA Fact Sheet Add. Discharge Instructions: 1. Tylenol and ibuprofen for fevers or body aches. Cough medication as directed. Scheduling department will call you this week with an appointment time for an infusion of Regeneron whenever they are able to do that. All discharge instructions reviewed with patient and/or family. Voiced understanding. Scripts Hydrocodone/Acetaminophen (Hydrocodone-Acetamin 5-325 mg) 1 Each Tablet 1 TAB PO Q4H PRN for PAIN-MODERATE (5-7), #14 TAB Prov: MAGDALENO VIVAR APRN 01/30/21 Hydrocodone/Acetaminophen (Hydrocodone-Acetamin 5-325 mg) 1 Each Tablet 1 TAB PO Q4H PRN for COUGH, #14 TAB Prov: MAGDALENO VIVAR APRN 01/30/21 ATTENDING PHYSICIAN NOTE: I was physically present as attending physician in the emergency department during the care of this patient, but I was not directly involved in the decision making or delivery of care for this patient. (GOKUL PRESCOTT MD) MAGDALENO VIVAR APRN Jan 30, 2021 13:23 GOKUL PRESCOTT MD Jan 31, 2021 22:34
[2021-01-30] MEDS ORDERED: ACHD5005 PO ×2 (13:25→14:18)
[2021-01-30 14:08] VITALS: BP 126/106
--- NOTE | 2021-01-30 14:21 | Diagnostic Imaging Report ---
INDICATION: Chest pain, COVID positive. COMPARISON: 11/15/2008. FINDINGS: Single view of the chest demonstrates clear lungs bilaterally. Heart is normal. There is no pneumothorax. Osseous structures are age appropriate. IMPRESSION: Negative chest. Dictated by: Dictated on workstation # [id number]
== END 2021-01-30 14:13 | disposition home or self-care (01) ==
LOC: EDUNIT# 12:51 → ER 12:52
DX: U07.1 COVID-19 (principal)
CPT/HCPCS: 71045

== ENCOUNTER → 2021-02-01 | Outpatient (CLI) | payer MEDICAID ==
[~2021-02-01] VITALS: Ht 160 cm; Wt 70.4 kg
[~2021-02-01] MED LIST changes: +CASIRIVIMAB/IMDEVIMAB 1,200 MG in NS (IVPB) 250 ML IV ONE; +EPINEPHrine INJECTION 1 MG/ML AMP IM PRN; +diphenhydrAMINE 50 MG/ML INJ (BENADRYL) IV PRN
[2021-02-01 10:03] VITALS: BP 107/58
[2021-02-01 11:44] VITALS: BP 120/90
== END ==
LOC: INFUSION 10:04
PROVIDERS: ATTEND Nurse Practitioner Family
DX: Z23 Encounter for immunization (principal); U07.1 COVID-19

== ENCOUNTER 2022-05-24 09:14 | Emergency (ER) | payer MEDICAID ==
[~2022-05-24] VITALS: Ht 162 cm; Wt 64.0 kg
[~2022-05-24 09:14] MED LIST changes: -CASIRIVIMAB/IMDEVIMAB 1,200 MG in NS (IVPB) 250 ML IV ONE; +CYCL10TA25 PO; -CYCL10TA9 PO; -EPINEPHrine INJECTION 1 MG/ML AMP IM PRN; -diphenhydrAMINE 50 MG/ML INJ (BENADRYL) IV PRN
[2022-05-24 10:34] LABS: BASOPHILS # (AUTO) 0.1 10^3/uL (0.0-0.1); BASOPHILS % (AUTO) 1 % (0-10); EOSINOPHILS # (AUTO) 0.1 10^3/uL (0.0-0.3); EOSINOPHILS % (AUTO) 1 % (0-10); HEMATOCRIT 43 % (35-52); HEMOGLOBIN 14.9 g/dL (11.5-16.0); LYMPHOCYTES # (AUTO) 2.7 10^3/uL (1.0-4.0); LYMPHOCYTES % (AUTO) 26 % (12-44); MEAN CORPUSCULAR HEMOGLOBIN 33 pg (25-34); MEAN CORPUSCULAR HGB CONC 35 g/dL (32-36); MEAN CORPUSCULAR VOLUME 95 fL (80-99); MONOCYTES # (AUTO) 0.5 10^3/uL (0.0-1.0); MONOCYTES % (AUTO) 5 % (0-12); NEUTROPHILS # (AUTO) 7.3 10^3/uL (1.8-7.8); NEUTROPHILS % (AUTO) 68 % (42-75); PLATELET COUNT 233 10^3/uL (130-400); WHITE BLOOD COUNT 10.7 10^3/uL (4.3-11.0)
[2022-05-24 10:42] VITALS: BP_SYST 104; BP_SYST 109; BP_SYST 110; BP_DIAS 74; BP_DIAS 76; BP_DIAS 79
[2022-05-24 10:43] LABS: POTASSIUM 3.6 MMOL/L (3.6-5.0)
[2022-05-24 10:44] LABS: CALCIUM 9.5 MG/DL (8.5-10.1)
[2022-05-24 10:48] LABS: CREATININE SERUM 0.65 MG/DL (0.60-1.30)
--- NOTE | 2022-05-24 10:52 | ED General ---
General Chief Complaint: General Problems/Pain Stated Complaint: PASSED OUT | BORDERLINE ANEMIC Nursing Triage Note: Patient states she has had several syncopal episodes as of lately. She advised the most recent occurrance she was about an hour ago. She advised she began feeling dizzy and then awoke in her car and approximately 1hr had gone by. She advised she has been experiencing intermittent chest pain but believes it is secondary to anxiety. History of Present Illness Date Seen by Provider: May 24, 2022 Time Seen by Provider: 10:36 Initial Comments Patient is a 31-year-old female who presents to the emergency room today with a chief complaint of syncopal episode. Patient states over the last 6 to 8 months she has had recurrent episodes about 3 times a week of dizziness, feeling lightheaded, nauseous sweaty, headache when the symptoms start. She cannot think of anything that preciptiates these episodes. She states most of the time the episodes are brief. She had 1 on the where she passed out at home. She had a second episode today sitting in her car smoking a cigarette and found herself leaning outside of the car. 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 Work sent her to the ER for evaluation. She has seen her primary care doctor, Dr. Morillo in [place] for this. She states she has had palpitations in the past with a Holter monitor. No definitive diagnosis. She has had some weight loss since December about 14 pounds that she reports is unintentional. She feels a little off balance at times and unsteady on her feet. No recurrent severe headaches, no vision changes. No hearing issues. No chest pain or shortness of breath currently. She states for several years she has had a very large lymph node in the left side of her neck that she can now feel when she swallows. She has had a hysterectomy and cholec ystectomy. Denies any bowel or bladder complaints. Recently had colonoscopy. Had colitis. Has 3 children at home. Currently feeling back to baseline. All other review of systems reviewed and negative except as stated Timing/Duration: Other (months) Severity: Moderate Associated Systoms: Diaphoresis, Headaches, Malaise, Syncope, Weakness Allergies and Home Medications Allergies Coded Allergies: oxycodone (Verified Allergy, Mild, WELTS, ITCHING, 11/05/18) amoxicillin (Verified Adverse Reaction, Mild, YEAST INFECTION, 11/09/18) Patient Home Medication List Home Medication List Reviewed: Yes Hydrocodone/Acetaminophen (Hydrocodone-Acetamin 5-325 mg) 1 Each Tablet, 1 TAB PO Q4H PRN for PAIN-MODERATE (5-7) Prescribed by: MAGDALENO VIVAR on 07/21/20 1431 Hydrocodone/Acetaminophen (Hydrocodone-Acetamin 5-325 mg) 1 Each Tablet, 1 TAB PO Q4H PRN for COUGH Prescribed by: MAGDALENO VIVAR on 01/30/21 1326 Hydrocodone/Acetaminophen (Hydrocodone-Acetamin 5-325 mg) 1 Each Tablet, 1 TAB PO Q4H PRN for PAIN-MODERATE (5-7) Prescribed by: MAGDALENO VIVAR on 01/30/21 1419 Ibuprofen (Ibuprofen) 800 Mg Tablet, 800 MG PO Q8H PRN for PAIN-MILD Prescribed by: MAGDALENO VIVAR on 07/21/20 1431 Oxcarbazepine (Oxcarbazepine) 300 Mg Tablet, (Reported) Entered as Reported by: JOSE GOMEZ on 05/26/192143 Prazosin HCl (Prazosin HCl) 1 Mg Capsule, (Reported) Entered as Reported by: JOSE GOMEZ on 05/26/192143 Quetiapine Fumarate (Seroquel) 300 Mg Tablet, 300 MG PO, (Reported) Entered as Reported by: JOSE GMOEZ on 05/26/192144 Sulfamethoxazole/Trimethoprim (Bactrim Ds Tablet) 1 Each Tablet, 1 EACH PO BID Prescribed by: MAGDALENO VIVAR on 07/21/20 143 Vortioxetine Hydrobromide (Trintellix) 10 Mg Tablet, (Reported) Entered as Reported by: JOSE GOMEZ on 05/26/192143 Review of Systems Review of Systems Constitutional: see HPI EENTM: no symptoms reported Respiratory: short of breath Cardiovascular: palpitations Gastrointestinal: nausea Genitourinary: no symptoms reported : No Musculoskeletal: no symptoms reported Skin: other (sweaty) Psychiatric/Neurological: Headache, Other (lightheaded) All Other Systems Reviewed Negative Unless Noted: Yes Past Hogtoof-Rvmohq-Brkklm Hx Patient Social History Tobacco Use?: Yes Tobacco type used: Cigarettes Smoking Status: Current Everyday Smoker Substance use?: No Alcohol Use?: No Immunizations Up To Date Tetanus Booster (TDap): Less than 5yrs PED Vaccines UTD: No First/Initial COVID19 Vaccinat: 09/10 Second COVID19 Vaccination Magen: 09/10 Third COVID19 Vaccination Date: 09/10 Seasonal Allergies Seasonal Allergies: No Past Medical History Surgery/Hospitalization HX: full hysterectomy, right shoulder, knee, gallbladder, bladder reconstruction and tonsils Surgeries: Yes (right shoulderX3 , left knee) Adenoidectomy, Gallbladder, 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, Orthopedic, Tonsillectomy, Tubal Ligation Respiratory: Yes Asthma Cardiac: Yes Palpitations Neurological: No 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 Disorders: No Female 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 Disorders: 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 Sexually Transmitted Disease: No HIV/AIDS: No Genitourinary: No Gastrointestinal: Yes Gastroesophageal Reflux, Chronic Diarrhea Musculoskeletal: No Endocrine: No HEENT: Yes (GLASSES, DENTURES) Tonsilitis Loss of Vision: Bilateral Hearing Impairment: Denies Cancer: No Psychosocial: Yes Sleep Difficulties, Anxiety, Depression Integumentary: No Blood Disorders: No Adverse Reaction/Blood Tranf: No (N/A) Family Medical History Asthma 19 MOTHER G8 BROTHER Drug abuse 19 FATHER (currently) 19 MOTHER, Onset:20 - Psychosocial problem 19 MOTHER (bipolar/depression) Physical Exam Vital Signs Vital Signs - First Documented 05/24/22 09:51 Temp 35.4 Pulse 73 Resp 18 B/P (MAP) 118/87 (97) Pulse Ox 99 O2 Delivery Room Air Capillary Refill : Less Than 3 Seconds Height, Weight, BMI Height: 5'4.00" Weight: 176lbs. 0.0oz. 79.257112sq; 24.00 BMI Method:Stated General Appearance: No Apparent Distress, WD/WN, Thin Eyes: Bilateral Eye Normal Inspection, Bilateral Eye PERRL, Bilateral Eye EOMI HEENT: PERRL/EOMI, Moist Mucous Membranes Neck: Normal Inspection, Lymphadenopathy (L) Respiratory: Lungs Clear, Normal Breath Sounds, No Accessory Muscle Use, No Respiratory Distress Cardiovascular: Regular Rate, Rhythm, Normal Peripheral Pulses Gastrointestinal: Normal Bowel Sounds, Non Tender, Soft Extremity: Normal Capillary Refill, Normal Inspection, Normal Range of Motion, Non Tender, No Calf Tenderness Neurologic/Psychiatric: Alert, Oriented x3, No Motor/Sensory Deficits, Normal 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7 4.3-11.0 10^3/uL Red Blood Count 4.53 3.80-5.11 10^6/uL Hemoglobin 14.9 11.5-16.0 g/dL Hematocrit 43 35-52 % Mean Corpuscular Volume 95 80-99 fL Mean Corpuscular Hemoglobin 33 25-34 pg Mean Corpuscular Hemoglobin Concent 35 32-36 g/dL Red Cell Distribution Width 12.8 10.0-14.5 % Platelet Count 233 130-400 10^3/uL Mean Platelet Volume 11.0 9.0-12.2 fL Immature Granulocyte % (Auto) 0 % Neutrophils (%) (Auto) 68 42-75 % Lymphocytes (%) (Auto) 26 12-44 % Monocytes (%) (Auto) 5 0-12 % Eosinophils (%) (Auto) 1 0-10 % Basophils (%) (Auto) 1 0-10 % Neutrophils # (Auto) 7.3 1.8-7.8 10^3/uL Lymphocytes # (Auto) 2.7 1.0-4.0 10^3/uL Monocytes # (Auto) 0.5 0.0-1.0 10^3/uL Eosinophils # (Auto) 0.1 0.0-0.3 10^3/uL Basophils # (Auto) 0.1 0.0-0.1 10^3/uL Immature Granulocyte # (Auto) 0.0 0.0-0.1 10^3/uL Sodium Level 140 135-145 MMOL/L Potassium Level 3.6 3.6-5.0 MMOL/L Chloride Level 106 98-107 MMOL/L Carbon Dioxide Level 23 21-32 MMOL/L Anion Gap 11 5-14 MMOL/L Blood Urea Nitrogen 6 L 7-18 MG/DL Creatinine 0.65 0.60-1.30 MG/DL Estimat Glomerular Filtration Rate 121 BUN/Creatinine Ratio 9 Glucose Level 106 H 70-105 MG/DL Calcium Level 9.5 8.5-10.1 MG/DL Thyroid Stimulating Hormone (TSH) 0.64 0.35-4.94 UIU/ML Free Thyroxine 0.97 0.70-1.48 NG/DL Urine Opiates Screen NEGATIVE NEGATIVE Urine Oxycodone Screen NEGATIVE NEGATIVE Urine Methadone Screen NEGATIVE NEGATIVE Urine Propoxyphene Screen NEGATIVE NEGATIVE Urine Barbiturates Screen NEGATIVE NEGATIVE Ur Tricyclic Antidepressants Screen NEGATIVE NEGATIVE Urine Phencyclidine Screen NEGATIVE NEGATIVE Urine Amphetamines Screen NEGATIVE NEGATIVE Urine Methamphetamines Screen NEGATIVE NEGATIVE Urine Benzodiazepines Screen NEGATIVE NEGATIVE Urine Cocaine Screen NEGATIVE NEGATIVE Urine Cannabinoids Screen POSITIVE H NEGATIVE Serum Test, Qualitative NEGATIVE NEGATIVE My Orders Orders - LIVE GRANT MD Ed Iv/Invasive Line Start (05/24/22 09:52) Ekg Tracing (05/24/22 09:52) Cbc With Automated Diff (05/24/22 09:52) Basic Metabolic Panel (05/24/22 09:52) Influenza A And B By Pcr (05/24/22 09:52) Covid 19 Inhouse Test (05/24/22 09:52) Drug Screen Stat (Urine) (05/24/22 10:52) Thyroid Stimulating Hormone (05/24/22 10:52) Free T4 (Free Thyroxine) (05/24/22 10:52) Triiodothryonine T3 Free (05/24/22 10:52) Hcg,Qualitative Serum (05/24/22 11:33) Vital Signs/I&O 05/24/22 05/24/22 05/24/22 09:51 10:42 12:15 Temp 35.4 Pulse 73 81 86 101 77 Resp 18 18 B/P (MAP) 118/87 (97) 110/79 (89) 107/72 104/74 (84) 109/76 (87) Pulse Ox 99 98 O2 Delivery Room Air Room Air Capillary Refill : Less Than 3 Seconds Blood Pressure Mean: 97 Progress Note : Time: 12:04 Progress Note Patient seen and evaluated, work-up for syncopal episode unremarkable. EKG, no acute findings, normal sinus in the 60s without ectopy. Basic laboratory studies all within normal limits. Neg Thyroid studies. She was positive for marijuana on her urine drug screen. No clinical indications or objective findings to warrant CT head noncontrast. Neurologic exam is normal. She is status post hysterectomy, negative . No recurrent symptoms throughout her ED course. Patient is encouraged to follow-up with her primary care provider, Dr. Morillo. I have also encouraged her to follow-up with Dr. Lerma who she has seen in the past for palpitations. She may need another Holter monitor as she states that she experiences symptoms up to 3 times a week. Patient is agreeable with plan of care. All questions are sought and answered. Patient stable for discharge. ECG Initial ECG Impression Date: May 24, 2022 Initial ECG Impression Time: 10:09 Initial ECG Rate: 54 Initial ECG Rhythm: S.Rodrigo Initial ECG Intervals: Normal Initial ECG Impression: Normal Departure Impression Primary Impression: Syncope Qualified Codes: R55 - Syncope and collapse Additional Impression: Palpitations Disposition: 01 HOME, SELF-CARE Condition: Stable Departure-Patient Inst. Decision time for Depature: 12:05 Referrals: SMITA MORILLO MD (PCP/Family) Primary Care Physician Patient Instructions: Syncope (Fainting) (DC) Add. Discharge Instructions: Drink plenty of fluids to stay well-hydrated. Avoid excessive caffeine or stimulants. Please call and follow-up with your primary care provider for further evaluation of your palpitations and passing out spells. Return to the emergency department for any new, concerning or emergent complaints. Work/School Note: Work Release Form Date Seen in the Emergency Department: May 24, 2022 Return to Work: May 25, 2022 Copy Copies To 1: SMITA MORILLO MD, KATHRYN M MD May 24, 2022 10:52
[2022-05-24 11:15] LABS: AMPHETAMINE SCREEN, URINE NEGATIVE (NEGATIVE); BARBITURATE SCREEN URINE NEGATIVE (NEGATIVE); BENZODIAZEPINES SCREEN URINE NEGATIVE (NEGATIVE); CANNABINOID SCREEN, URINE POSITIVE (NEGATIVE); COCAINE SCREEN URINE NEGATIVE (NEGATIVE); METHADONE STAT NEGATIVE (NEGATIVE); OPIATE SCREEN URINE NEGATIVE (NEGATIVE); OXYCODONE STAT NEGATIVE (NEGATIVE); PROPOXYPHENE STAT NEGATIVE (NEGATIVE); TRICYCLIC ANTIDEPRESSANTS SCRE NEGATIVE (NEGATIVE)
[2022-05-24 11:32] LABS: FREE T4 (FREE THYROXINE) 0.97 NG/DL (0.70-1.48)
[2022-05-24 12:15] VITALS: BP 107/72
== END 2022-05-24 12:17 | disposition home or self-care (01) ==
LOC: EDUNIT# 09:14 → ER 09:18
DX: R55 Syncope and collapse (principal); R00.2 Palpitations; F17.210 Nicotine dependence, cigarettes, uncomplicated; Z20.822 Contact with and (suspected) exposure to COVID-19
CPT/HCPCS: 36415; 80048; 80306; 84439; 84443; 84481; 84703; 85025; 87636; 93005